=== PATIENT | female | born 1985 | race Hispanic/Latino ===

== ENCOUNTER 2017-08-21 00:53 | Emergency (ER) | payer SELFPAY ==
[2017-08-21 01:09] VITALS: BP 117/79; TEMP 102.8
--- NOTE | 2017-08-21 01:31 | ED.PDOC ---
History of Present Illness - General Chief Complaint: Respiratory Problem Stated Complaint: cough, SOB, sore throat, fever Time Seen by Provider: 08/21/17 01:23 Source: patient Exam Limitations: no limitations - History of Present Illness Timing/Duration: yesterday Cough Quality/Degree: mild Possible Cause: illness exposure Improving Factors: nothing Worsening Factors: eating Associated Symptoms: cough, sore throat Respiratory Risk Factors: exposure to illness Allergies/Adverse Reactions: Allergies NO KNOWN ALLERGY Allergy (Verified 08/21/17 01:09) Home Medications: Ambulatory Orders Amoxicillin & Pot Clavulanate [Augmentin] 875 mg PO BID #14 tab 08/21/17 Review of Systems - Review of Systems Constitutional: States: chills, fever EENTM: States: throat pain. Denies: ear pain, nose congestion Respiratory: States: cough. Denies: wheezing Cardiology: States: no symptoms reported Gastrointestinal/Abdominal: States: no symptoms reported Genitourinary: States: no symptoms reported Musculoskeletal: States: no symptoms reported Skin: States: no symptoms reported Neurological: States: no symptoms reported Endocrine: States: no symptoms reported Hematologic/Lymphatic: States: no symptoms reported All other Systems: Reviewed and Negative Past Medical History (General) - Patient Medical History Hx Seizures: No Hx Stroke: No Hx Dementia: No Hx Asthma: No Hx of COPD: No Hx Cardiac Disorders: Yes Hx Congestive Heart Failure: Yes Hx Pacemaker: No Hx Hypertension: Yes Hx Thyroid Disease: No Hx Diabetes: Yes Hx Gastroesophageal Reflux: No Hx Renal Disease: No Hx Cancer: No Hx of HIV: No Hx Hepatitis C: No Hx MRSA: Yes - Blood, Leg 2010 MRSA Source:: Wound - Vaccination History Hx Tetanus, Diphtheria Vaccination: - unknown Hx Influenza Vaccination: - unknown Hx Pneumococcal Vaccination: - unknown - Social History Hx Tobacco Use: Yes - just quit Hx Chewing Tobacco Use: No Hx Alcohol Use: Yes - just quit Hx Substance Use: Yes - used meth last week Hx Substance Use Treatment: No Hx Depression: Yes Feels Threatened In Home Enviroment: No Feels Threatened In a Relationship: No Hx Physical Abuse: No Hx Emotional Abuse: No Hx Suspected Abuse: No - Female History Patient is a Female of Child Bearing Age (10 -59 yrs old): Yes Family Medical History - Family History Mother Family History: Unknown Living Status: Still Living Physical Exam - Physical Exam General Appearance: Alert, Other - uncomfortable Eye Exam: bilateral normal ENT Exam: normal ENT inspection, hearing grossly normal, TMs normal, pharynx normal Neck: full range of motion, lymphadenopathy (L) Respiratory: chest non-tender, lungs clear, normal breath sounds, no respiratory distress Cardiovascular/Chest: normal peripheral pulses, regular rate, rhythm, no murmur Gastrointestinal/Abdominal: normal bowel sounds, non tender Extremity: non-tender, normal inspection Neurologic: alert, normal mood/affect Skin Exam: normal color, diaphoresis Lymphatic: no adenopathy Progress - Results/Orders Results/Orders: RAPID STREP POS. Departure - Departure Clinical Impression: Strep throat, Systemic inflammatory response syndrome (SIRS) due to infection Disposition: Discharge to Home or Self Care Condition: Good Departure Forms: ED Discharge - Pt. Copy, Patient Portal Self Enrollment Instructions: DI for Strep Throat Diet: resume usual diet Activity: increase activity as tolerated Referrals: Fred Cornejo MD [Active Staff] - 1-2 Weeks Prescriptions: Amoxicillin & Pot Clavulanate [Augmentin] 875 mg PO BID #14 tab Home Medications: Ambulatory Orders Amoxicillin & Pot Clavulanate [Augmentin] 875 mg PO BID #14 tab 08/21/17
[2017-08-21] MEDS ORDERED: AMOXICILLIN & POT CLAVULANATE 875 MG TAB PO ONE (01:34)
[2017-08-21] MEDS ORDERED: ACETAMINOPHEN 500 MG TAB PO ONE (01:37)
[2017-08-21] MEDS ORDERED: ACETAMINOPHEN 500 MG TAB ONE (01:38)
[2017-08-21 01:50] VITALS: O2SAT 96
== END 2017-08-21 01:50 | disposition home or self-care (01) ==
LOC: ER 00:53
DX: J02.0 Streptococcal pharyngitis (principal); I11.0 Hypertensive heart disease with heart failure; I50.9 Heart failure, unspecified; Z86.14 Personal history of Methicillin resistant Staphylococcus aureus infection; Z87.891 Personal history of nicotine dependence

== ENCOUNTER 2017-08-23 07:42 | Inpatient (IN) | payer SELFPAY ==
[2017-08-23] MEDS ORDERED: SODIUM CHLORIDE 0.9% (FLUSH) 10 ML SYG IV PRN ×2 (08:07→13:43)
[2017-08-23] MEDS ORDERED: IPRATROPIUM/ALBUTEROL 3 ML VIAL NEB ONE (08:09)
--- NOTE | 2017-08-23 08:17 | ED.PDOC ---
History of Present Illness - General Chief Complaint: Respiratory Problem Stated Complaint: shortness of breath Time Seen by Provider: 08/23/17 08:07 Source: patient Exam Limitations: no limitations - History of Present Illness Initial Comments: PT PRESENTS TO THE ED WITH COMPLAINT OF SOB SINCE YESTERDAY AND COUGH PRODUCTIVE OF FROTHY SPUTUM THAT BEGAN THIS AM. PT ALSO REPORTS FEVER OF 102.5 YESTERDAY. PT WAS SEEN IN THE ED 2 DAYS PRIOR WHERE SHE WAS DIAGNOSED WITH STREP PHARYNGITIS. PT REPORTS TAKING 2 DOSES OF HER ANTIBIOTIC THUS FAR. PT ALSO REPORTS SHE HAS NOT HAD MEDS FOR DM, HTN, OR CHF FOR THE PAST 2 WEEKS. Timing/Duration: yesterday, getting worse Improving Factors: rest Worsening Factors: movement Associated Symptoms: cough, fever/chills, shortness of breath, sore throat Allergies/Adverse Reactions: Allergies NO KNOWN ALLERGY Allergy (Verified 08/21/17 01:09) Home Medications: Ambulatory Orders Amoxicillin & Pot Clavulanate [Augmentin] 875 mg PO BID #14 tab 08/21/17 Review of Systems - Review of Systems Constitutional: States: chills, fever EENTM: States: throat pain. Denies: double vision, ear pain Respiratory: States: cough, short of breath Cardiology: Denies: chest pain, edema, palpitations Gastrointestinal/Abdominal: Denies: abdominal pain, nausea Genitourinary: Denies: discharge, frequency Musculoskeletal: Denies: back pain, joint pain Skin: Denies: change in color, lesions Neurological: Denies: headache, numbness Endocrine: States: no symptoms reported Hematologic/Lymphatic: States: no symptoms reported Past Medical History (General) - Patient Medical History Hx Seizures: No Hx Stroke: No Hx Dementia: No Hx Asthma: No Hx of COPD: No Hx Cardiac Disorders: Yes Hx Congestive Heart Failure: Yes Hx Pacemaker: No Hx Hypertension: Yes Hx Thyroid Disease: No Hx Diabetes: Yes Hx Gastroesophageal Reflux: No Hx Renal Disease: No Hx Cancer: No Hx of HIV: No Hx Hepatitis C: No Hx MRSA: Yes - Blood, Leg 2010 MRSA Source:: Wound Other Surgeries:: X 4 - Vaccination History Hx Tetanus, Diphtheria Vaccination: - unknown Hx Influenza Vaccination: Yes Hx Pneumococcal Vaccination: - unknown - Social History Hx Tobacco Use: Yes - QUIT 1YEAR AGO Hx Chewing Tobacco Use: No Hx Alcohol Use: Yes - just quit Hx Substance Use: Yes - used meth last week Hx Substance Use Treatment: No Hx Depression: Yes Hx Physical Abuse: No Hx Emotional Abuse: No Hx Suspected Abuse: No - Female History Patient is a Female of Child Bearing Age (10 -59 yrs old): Yes Family Medical History - Family History Mother Family History: Unknown Living Status: Still Living Physical Exam - Physical Exam General Appearance: Alert, Obvious distress - SLIGHTLY TACHYPNEIC, Well Developed, Well Groomed, Well Hydrated Eye Exam: bilateral normal ENT Exam: hearing grossly normal Neck: supple, normal inspection Respiratory: chest non-tender, rales Cardiovascular/Chest: normal peripheral pulses, no murmur, tachycardia Gastrointestinal/Abdominal: non tender, soft Extremity: non-tender, normal inspection, no pedal edema Neurologic: alert, normal mood/affect, oriented x 3 Skin Exam: normal color, warm/dry Progress - Progress Progress: 08/23/17 10:53 PT REPORTS SOME IMPROVEMENT IN DYSPNEA AFTER DUONEB, PT REMAINS TACHYCARDIC AND NOW COMPLAINS OF NAUSEA. ZOFRAN ORDERED. LABS AND CXR FINDINGS DISCUSSED WITH PT WHO AGREES WITH PLAN TO ADMIT. - Results/Orders Results/Orders: 08/23/17 08:07 Telemetry .ONCE Sodium Chloride 0.9% (Flush) [Saline Flush Syringe] 10 ml IV PRN PRN 08/23/17 08:50 BLOOD CULTURE Stat 08/23/17 10:28 URINE CULTURE W/COLONY COUNT Stat Arterial Blood Gas Stat EKG Stat Pulse Ox Stat URINALYSIS Stat 08/23/17 10:29 Pulse Oximetry Assessment DAILY 08/23/17 10:31 cefTRIAXone SODIUM [Rocephin] 1 gm Sodium Chl 0.9% 50Ml Min-Bag+ [NS 50ml MINI -BAG+] 50 ml IVPB ONCE 08/23/17 10:49 LACTIC ACID Stat Laboratory Results - last 24 hr 08/23/17 08/23/17 08:20 08:20 WBC 18.4 H RBC 4.90 Hgb 15.1 Hct 44.1 MCV 90.0 MCH 30.8 MCHC 34.2 RDW 13.5 Plt Count 348 MPV 7.4 Absolute Neuts (auto) 14.60 H Absolute Lymphs (auto) 2.70 Absolute Monos (auto) 0.70 Absolute Eos (auto) 0.30 Absolute Basos (auto) 0.10 Neutrophils % 79.1 H Lymphocytes % 14.9 L Monocytes % 3.7 Eosinophils % 1.5 Basophils % 0.8 PT 12.1 INR 1.070 PTT (SP) 27.4 D-Dimer, Quantitative 365 H* Sodium 137 Potassium 3.4 L Chloride 106 Carbon Dioxide 22 Anion Gap 12.4 BUN 9 Creatinine 0.58 L BUN/Creatinine Ratio 15.5 Random Glucose 208 H Serum Osmolality 278.6 Calcium 8.3 L Magnesium 1.7 L Total Bilirubin 1.1 H Direct Bilirubin 0.1 Indirect Bilirubin 1.0 H AST 16 ALT 16 Alkaline Phosphatase 73 Creatine Kinase 43 CK-MB (CK-2) 2.5 CK-MB (CK-2) % Not Reportable Troponin I 0.02 B-Natriuretic Peptide 598.0 H* Serum Total Protein 7.2 Albumin 3.3 - EKG/XRAY/CT EKG: Sinus, Tachy - 122BPM, NL INTERVALS, NL AXIS, no ST T wave changes - NO OLD EKG FOR COMPARISON XRAY: chest - CHF WITH RLL INFILTRATE PER RAD Departure - Departure Clinical Impression: Congestive heart failure, Pneumonia, Strep throat, Systemic inflammatory response syndrome (SIRS) due to infection, Hypoxemia, Noncompliance with medication regimen Time of Disposition: 10:57 Disposition: Admit Patient Condition: Fair Departure Forms: ED Discharge - Pt. Copy, Patient Portal Self Enrollment Home Medications: Ambulatory Orders Amoxicillin & Pot Clavulanate [Augmentin] 875 mg PO BID #14 tab 08/21/17 Decision To Admit - Decistion To Admit Decision to Admit Reason: Admit from ER Decision to Admit Date: 08/23/17 Decision to Admit Time: 10:57 - CASE DISCUSSED WITH JUANITA HAMPTON NP WHO AGREES TO ADMIT PATIENT
--- NOTE | 2017-08-23 08:21 | RAD ---
EXAM DESCRIPTION: Chest,1 View CLINICAL HISTORY: sob, fever, h/o chf COMPARISON: January 30, 2010 FINDINGS: The cardiac silhouette is enlarged, new from the prior study. Mediastinal contours are otherwise unremarkable. The central bronchovascular markings are indistinct. There is some patchy alveolar opacity in the mid and lower right lung. No pleural effusion. There is no pneumothorax or acute fracture. IMPRESSION: Cardiomegaly, indistinct vascular markings and patchy right-sided alveolar opacities all consistent with provided history of CHF including right-sided edema. Right-sided pneumonia should also be considered. Electronically signed by: Michael Mccoy MD 08/23/2017 8:20 AM CDT
[2017-08-23] MEDS ORDERED: FUROSEMIDE INJ 40 MG/4 ML VIAL IV ONE (08:35)
[2017-08-23] MEDS ORDERED: cefTRIAXone SODIUM 1 GM in SODIUM CHL 0.9% 50ML MIN-BAG+ 50 ML IVPB ONE ×2 (08:36→10:31)
[2017-08-23] MEDS ORDERED: AZITHROMYCIN IV 500 MG in SODIUM CHLORIDE 0.9% 250ML 250 ML IVPB ONE (08:36)
[2017-08-23] MEDS ORDERED: cefTRIAXone SODIUM 1 GM VIAL ONE ×2 (08:51→11:22)
[2017-08-23] MEDS ORDERED: SODIUM CHL 0.9% 50ML MIN-BAG+ 50 ML IVPB ONE ×2 (08:52→11:22)
[2017-08-23] MEDS ORDERED: SODIUM CHLORIDE 0.9% 250ML 250 ML ONE (09:37)
[2017-08-23] MEDS ORDERED: AZITHROMYCIN IV 500 MG VIAL IVPB ONE (09:37)
[2017-08-23] MEDS ORDERED: ONDANSETRON INJ 4 MG/2 ML VIAL IV ONE (10:26)
[2017-08-23] MEDS ORDERED: ACETAMINOPHEN 500 MG TAB PO ONE (10:28)
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
[2017-08-23] MEDS ORDERED: POTASSIUM CHLORIDE 20 MEQ TAB PO ONE (13:36)
[2017-08-23] MEDS ORDERED: MAGNESIUM SULFATE PREMIX 2GM 2 GM in PREMIX BAG 1 BAG IVPB ONE (13:36)
[2017-08-23] MEDS ORDERED: NITROGLYCERIN 0.4 MG 25 EA TAB SL PRN (13:38)
[2017-08-23] MEDS ORDERED: ALBUTEROL SULFATE 2.5 MG/3 ML VIAL NEB PRN (13:38)
[2017-08-23] MEDS ORDERED: MAGNESIUM SULFATE PREMIX 2GM 50 ML IVPB ONE (13:41)
[2017-08-23] MEDS ORDERED: SPIRONOLACTONE 25 MG TAB PO ONE (13:42)
[2017-08-23] MEDS ORDERED: ACETAMINOPHEN 325 MG TAB PO PRN (13:43)
[2017-08-23] MEDS ORDERED: GLUCAGON INJ 1 MG VIAL SUBCU PRN (13:48)
[2017-08-23] MEDS ORDERED: DEXTROSE 50% 25 GM/50 ML SYG IV PRN (13:48)
[2017-08-23] MEDS ORDERED: IV SET AND CAP CHANGE INJ INJ SCH (14:00)
[2017-08-23] MEDS ORDERED: METOPROLOL SUCCINATE XL 25 MG TAB PO SCH (14:00)
[2017-08-23] MEDS: IV SET AND CAP CHANGE INJ INJ SCH (14:23)
--- NOTE | 2017-08-23 14:41 | CT ---
EXAM DESCRIPTION: CTA Chest CLINICAL HISTORY: possible PE . Shortness of breath. Fever. COMPARISON: Chest radiograph earlier same day. TECHNIQUE: Multiple angiographic phase axial images of the chest following intravenous contrast. Multiplanar reconstructions were provided. MIPS were generated as well. This exam was performed according to our departmental dose-optimization program, which includes automated exposure control, adjustment of the mA and/or kV according to patient size and/or use of iterative reconstruction technique. FINDINGS: Lungs: Somewhat nodular airspace opacities with reticulonodular interstitial thickening throughout the right lung, most pronounced in the right lower lobe. More hazy groundglass consolidation in the left lower lobe. Small right greater than left pleural effusions. Mediastinum: The heart is enlarged. There are no filling defects in the pulmonary arteries through the segmental branches. Small pericardial effusion. The trachea and esophagus are unremarkable. Lymph nodes: There are no pathologically enlarged lymph nodes by CT size criteria. Chest wall and lower neck: No significant finding. Bones: There is no destructive osseous lesion Upper abdomen: The liver is enlarged. IMPRESSION: 1. No CTA evidence of pulmonary embolism. 2. Extensive nodular consolidation throughout the right lung, with more patchy groundglass consolidation in the left lung. The findings may be secondary to multifocal pneumonia versus asymmetric pulmonary edema. Correlate clinically. 3. Cardiomegaly with bilateral pleural effusions and pericardial effusion. 4. Hepatomegaly. 5. Other findings as above. Electronically signed by: Jairo Elizabeth MD 08/23/2017 2:40 PM CDT
[2017-08-23] MEDS: CARVEDILOL 3.125 MG TAB PO SCH ×2 (15:16→21:02)
[2017-08-23] MEDS ORDERED: FUROSEMIDE INJ 20 MG/2 ML VIAL ONE (15:37)
[2017-08-23] MEDS ORDERED: LORazepam 0.5 MG TAB PO ONE (15:53)
[2017-08-23] MEDS ORDERED: LORazepam 0.5 MG TAB ONE (15:56)
[2017-08-23] MEDS: INSULIN LISPRO 100 UNITS/ML PEN SUBCU SCH ×2 (16:51→21:07)
[2017-08-23] MEDS: FUROSEMIDE INJ 20 MG/2 ML VIAL IV SCH (16:52)
[2017-08-23] MEDS: IPRATROPIUM/ALBUTEROL 3 ML VIAL INH SCH ×2 (17:40→19:30)
[2017-08-23] MEDS ORDERED: INSULIN LISPRO 100 UNITS/ML PEN SUBCU SCH (18:00)
[2017-08-23] MEDS ORDERED: PANTOPRAZOLE INJECTION 40 MG in SODIUM CHLORIDE 0.9% 100ML 100 ML IVPB ONE (19:57)
[2017-08-23] MEDS ORDERED: ONDANSETRON INJ 4 MG/2 ML VIAL IV PRN (19:57)
[2017-08-23] MEDS ORDERED: ACYCLOVIR 5% OINTMENT TOP ONE (20:30)
[2017-08-23] MEDS ORDERED: PANTOPRAZOLE SODIUM IV 40 MG VIAL ONE (20:46)
[2017-08-23] MEDS ORDERED: SODIUM CHLORIDE 0.9% 100ML 100 ML IVPB ONE (20:55)
[2017-08-23] MEDS: MICONAZOLE NITRATE 2 % 45 GM TUBE VAG SCH (21:02)
[2017-08-23] MEDS: ACYCLOVIR 5% OINTMENT TOP SCH ×2 (21:59→23:28)
--- NOTE | 2017-08-23 22:27 | PCM.CORE ---
Physician DVT/VTE - Nurse DVT Assessment & Total Each Risk Factor Represents 3 Points: Medical PT with Hx of [place], CHF, Severe infection/sepsis Each Risk Factor is 1 Point: Obesity (BMI >25) DVT Assessment Score: 4 - 3-4 High Risk Treatments: Early Ambulation *, Sequential Compression Device Pharmacological: Enoxaparin 40 mg SQ Daily
[2017-08-23] MEDS ORDERED: ENOXAPARIN SODIUM 40 MG/0.4 ML SYG SUBCU SCH (22:30)
[2017-08-24] MEDS: ACYCLOVIR 5% OINTMENT TOP SCH ×8 (02:06→22:41)
--- NOTE | 2017-08-24 06:23 | RAD ---
Procedure: XR CHEST 2 VIEWS Exam Date: 08/24/2017 Ordering Provider: Zeus Mar NP Clinical Indication: Pneumonia Comparison: 08/23/2017 Findings: Cardiomediastinal silhouette is stable. Focal lung consolidation: Diffuse bilateral lung opacities, right greater than left, are slightly improved from prior. Pleural effusion: None Pneumothorax: None Acute bony or soft tissue abnormality: None Impression: 1. Diffuse bilateral lung opacities, right greater than left, are slightly improved from prior. Electronically signed by: Gael West MD 08/24/2017 6:22 AM CDT
[2017-08-24] MEDS ORDERED: ASPIRIN (CHEWABLE) 81 MG TAB ONE (07:32)
[2017-08-24] MEDS ORDERED: SODIUM CHLORIDE 0.9% 250ML 250 ML ONE (07:33)
[2017-08-24] MEDS ORDERED: LISINOPRIL 10 MG TAB ONE (07:33)
[2017-08-24] MEDS ORDERED: SODIUM CHL 0.9% 50ML MIN-BAG+ 50 ML IVPB ONE (07:33)
[2017-08-24] MEDS: IPRATROPIUM/ALBUTEROL 3 ML VIAL INH SCH ×4 (07:34→19:35)
[2017-08-24] MEDS ORDERED: cefTRIAXone SODIUM 1 GM VIAL ONE (07:34)
[2017-08-24] MEDS ORDERED: LISINOPRIL 5 MG TAB ONE (07:34)
[2017-08-24] MEDS ORDERED: glipiZIDE 5 MG TAB ONE (07:34)
[2017-08-24] MEDS ORDERED: AZITHROMYCIN IV 500 MG VIAL IVPB ONE (07:34)
[2017-08-24] MEDS: INSULIN LISPRO 100 UNITS/ML PEN SUBCU SCH ×4 (07:43→21:17)
[2017-08-24] MEDS: AZITHROMYCIN IV 500 MG in SODIUM CHLORIDE 0.9% 250ML 250 ML IVPB SCH (07:44)
[2017-08-24] MEDS: POTASSIUM CHLORIDE 20 MEQ TAB PO SCH (07:44)
[2017-08-24] MEDS: glipiZIDE 5 MG TAB PO SCH (08:41)
[2017-08-24] MEDS: CARVEDILOL 3.125 MG TAB PO SCH ×2 (08:41→20:47)
[2017-08-24] MEDS: FUROSEMIDE INJ 20 MG/2 ML VIAL IV SCH ×2 (08:41→17:28)
[2017-08-24] MEDS: ASPIRIN (CHEWABLE) 81 MG TAB PO SCH (08:41)
[2017-08-24] MEDS: LISINOPRIL 5 MG TAB PO SCH (08:41)
[2017-08-24] MEDS: LISINOPRIL 10 MG TAB PO SCH (08:41)
[2017-08-24] MEDS ORDERED: cefTRIAXone SODIUM 1 GM in SODIUM CHL 0.9% 50ML MIN-BAG+ 50 ML IVPB SCH (10:00)
[2017-08-24] MEDS ORDERED: SODIUM CHLORIDE 0.9% 500ML 500 ML IVS ONE (10:13)
[2017-08-24] MEDS ORDERED: METOCLOPRAMIDE HCL INJ 10 MG/2 ML VIAL IV ONE (10:18)
[2017-08-24] MEDS: METOCLOPRAMIDE HCL INJ 10 MG/2 ML VIAL IV SCH ×3 (10:43→22:42)
[2017-08-24] MEDS ORDERED: cefTRIAXone SODIUM 1 GM in SODIUM CHL 0.9% 50ML MIN-BAG+ 50 ML IVPB ONE (11:48)
[2017-08-24] MEDS ORDERED: SODIUM CHLORIDE 3% INH ONE (13:00)
[2017-08-24] MEDS ORDERED: metroNIDAZOLE IV PREMIX 500MG 100 ML IVPB ONE ×2 (13:36→19:39)
[2017-08-24] MEDS: metroNIDAZOLE IV PREMIX 500MG 500 MG in PREMIX BAG 1 BAG IVPB SCH ×3 (14:51→22:53)
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
[2017-08-24] MEDS ORDERED: TUBERCULIN 5TU 5 TU/0.1 ML VIAL ID ONE (17:21)
[2017-08-24] MEDS: BIFIDOBACTERIUM INFANTIS 4 MG CAP PO SCH (17:28)
[2017-08-24] MEDS ORDERED: ENOXAPARIN SODIUM 40 MG/0.4 ML SYG SUBCU ONE (19:39)
[2017-08-24] MEDS ORDERED: CARVEDILOL 3.125 MG TAB ONE (19:39)
[2017-08-24] MEDS: MICONAZOLE NITRATE 2 % 45 GM TUBE VAG SCH (20:42)
[2017-08-24] MEDS: ENOXAPARIN SODIUM 40 MG/0.4 ML SYG SUBCU SCH (20:47)
[2017-08-25] MEDS: ACYCLOVIR 5% OINTMENT TOP SCH ×8 (02:15→22:48)
[2017-08-25] MEDS ORDERED: metroNIDAZOLE IV PREMIX 500MG 100 ML IVPB ONE ×3 (03:28→19:39)
[2017-08-25] MEDS: METOCLOPRAMIDE HCL INJ 10 MG/2 ML VIAL IV SCH ×4 (04:57→21:39)
[2017-08-25] MEDS: metroNIDAZOLE IV PREMIX 500MG 500 MG in PREMIX BAG 1 BAG IVPB SCH ×3 (05:06→21:38)
[2017-08-25] MEDS: glipiZIDE 5 MG TAB PO SCH (06:05)
--- NOTE | 2017-08-25 06:41 | RAD ---
Procedure: XR CHEST 2 VIEWS Exam Date: 08/25/2017 Ordering Provider: Zeus Mar NP Clinical Indication: pneumonia Comparison: 08/24/2017 Findings: Cardiomediastinal silhouette is stable. Focal lung consolidation: Diffuse bilateral lung opacities, right greater than left, continue to improve compared to prior. Pleural effusion: None Pneumothorax: None Acute bony or soft tissue abnormality: None Impression: 1. Diffuse bilateral lung opacities, right greater than left, continue to improve compared to prior. Electronically signed by: Gael West MD 08/25/2017 6:40 AM CDT
[2017-08-25] MEDS: INSULIN LISPRO 100 UNITS/ML PEN SUBCU SCH ×4 (07:09→21:39)
[2017-08-25] MEDS ORDERED: SODIUM CHLORIDE 0.9% 250ML 250 ML ONE (07:17)
[2017-08-25] MEDS ORDERED: AZITHROMYCIN IV 500 MG VIAL IVPB ONE (07:18)
[2017-08-25] MEDS: POTASSIUM CHLORIDE 20 MEQ TAB PO SCH (07:42)
[2017-08-25] MEDS: BIFIDOBACTERIUM INFANTIS 4 MG CAP PO SCH (08:00)
[2017-08-25] MEDS: LISINOPRIL 10 MG TAB PO SCH (08:01)
[2017-08-25] MEDS: ASPIRIN (CHEWABLE) 81 MG TAB PO SCH (08:01)
[2017-08-25] MEDS: LISINOPRIL 5 MG TAB PO SCH (08:01)
[2017-08-25] MEDS: CARVEDILOL 3.125 MG TAB PO SCH ×2 (08:02→20:34)
[2017-08-25] MEDS: FUROSEMIDE INJ 20 MG/2 ML VIAL IV SCH ×2 (08:02→17:05)
[2017-08-25] MEDS: AZITHROMYCIN IV 500 MG in SODIUM CHLORIDE 0.9% 250ML 250 ML IVPB SCH (08:03)
[2017-08-25] MEDS ORDERED: SODIUM CHL 0.9% 100ML MINI-BAG 100 ML IVPB ONE (09:01)
[2017-08-25] MEDS: IPRATROPIUM/ALBUTEROL 3 ML VIAL INH SCH ×4 (09:06→19:56)
[2017-08-25] MEDS: cefTRIAXone SODIUM 2 GM in SODIUM CHL 0.9% 100ML MINI-BAG 100 ML IVPB SCH (10:22)
[2017-08-25] MEDS: MICONAZOLE NITRATE 2 % 45 GM TUBE VAG SCH (20:34)
[2017-08-25] MEDS: ENOXAPARIN SODIUM 40 MG/0.4 ML SYG SUBCU SCH (20:34)
[2017-08-25] MEDS: SODIUM CHLORIDE 0.9% (FLUSH) 10 ML SYG IV PRN (21:39)
[2017-08-26] MEDS: ACYCLOVIR 5% OINTMENT TOP SCH ×8 (02:20→23:44)
[2017-08-26] MEDS: METOCLOPRAMIDE HCL INJ 10 MG/2 ML VIAL IV SCH ×4 (04:02→22:10)
[2017-08-26] MEDS: SODIUM CHLORIDE 0.9% (FLUSH) 10 ML SYG IV PRN ×4 (04:02→20:03)
[2017-08-26] MEDS ORDERED: metroNIDAZOLE IV PREMIX 500MG 100 ML IVPB ONE ×3 (06:16→19:33)
[2017-08-26] MEDS: metroNIDAZOLE IV PREMIX 500MG 500 MG in PREMIX BAG 1 BAG IVPB SCH ×3 (06:21→22:10)
[2017-08-26] MEDS: glipiZIDE 5 MG TAB PO SCH (06:21)
--- NOTE | 2017-08-26 07:10 | RAD ---
EXAM DESCRIPTION: Chest,2 Views CLINICAL HISTORY: pneumonia COMPARISON: August 25, 2017 FINDINGS: The heart is slightly enlarged but stable. Again seen is patchy alveolar opacity in the mid and lower right lung, unchanged from yesterday's exam. A subtle nodular opacity is noted in the right lung base. No new airspace consolidation. No definite pleural effusion. There is no pneumothorax or acute fracture. IMPRESSION: Patchy right-sided airspace consolidation, unchanged from yesterday's exam. Differential considerations include pneumonia or edema. Follow-up chest radiograph to document complete resolution and exclude the possibility of an underlying lung nodule is recommended. No new abnormality or other significant interval change. Electronically signed by: Michael Mccoy MD 08/26/2017 7:09 AM CDT
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
[2017-08-26] MEDS: FUROSEMIDE INJ 20 MG/2 ML VIAL IV SCH ×2 (08:51→17:26)
[2017-08-26] MEDS: BIFIDOBACTERIUM INFANTIS 4 MG CAP PO SCH (08:51)
[2017-08-26] MEDS: POTASSIUM CHLORIDE 20 MEQ TAB PO SCH (08:51)
[2017-08-26] MEDS: LISINOPRIL 10 MG TAB PO SCH (08:51)
[2017-08-26] MEDS: AZITHROMYCIN 250 MG TAB PO SCH (08:52)
[2017-08-26] MEDS: IPRATROPIUM/ALBUTEROL 3 ML VIAL INH SCH ×3 (08:54→20:12)
[2017-08-26] MEDS: INSULIN LISPRO 100 UNITS/ML PEN SUBCU SCH ×4 (09:44→21:22)
[2017-08-26] MEDS ORDERED: SODIUM CHL 0.9% 100ML MINI-BAG 100 ML IVPB ONE (09:45)
[2017-08-26] MEDS: cefTRIAXone SODIUM 2 GM in SODIUM CHL 0.9% 100ML MINI-BAG 100 ML IVPB SCH (09:53)
[2017-08-26] MEDS: ASPIRIN (CHEWABLE) 81 MG TAB PO SCH (09:59)
[2017-08-26] MEDS: CARVEDILOL 3.125 MG TAB PO SCH ×2 (10:05→20:02)
[2017-08-26] MEDS: LISINOPRIL 5 MG TAB PO SCH (10:05)
[2017-08-26] MEDS ORDERED: POTASSIUM CHLORIDE 20 MEQ TAB PO ONE (12:21)
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
[2017-08-26] MEDS: IV SET AND CAP CHANGE INJ INJ SCH (14:04)
[2017-08-26] MEDS: ENOXAPARIN SODIUM 40 MG/0.4 ML SYG SUBCU SCH (20:02)
[2017-08-26] MEDS: MICONAZOLE NITRATE 2 % 45 GM TUBE VAG SCH (20:03)
[2017-08-27] MEDS: ACYCLOVIR 5% OINTMENT TOP SCH ×3 (02:01→09:34)
[2017-08-27] MEDS ORDERED: metroNIDAZOLE IV PREMIX 500MG 100 ML IVPB ONE (04:09)
[2017-08-27] MEDS: METOCLOPRAMIDE HCL INJ 10 MG/2 ML VIAL IV SCH (04:14)
[2017-08-27] MEDS: SODIUM CHLORIDE 0.9% (FLUSH) 10 ML SYG IV PRN (04:14)
[2017-08-27] MEDS: metroNIDAZOLE IV PREMIX 500MG 500 MG in PREMIX BAG 1 BAG IVPB SCH (05:58)
[2017-08-27 06:32] VITALS: TEMP 98.4
[2017-08-27] MEDS: glipiZIDE 5 MG TAB PO SCH (07:06)
--- NOTE | 2017-08-27 07:11 | RAD ---
EXAM DESCRIPTION: Chest,2 Views CLINICAL HISTORY: pna COMPARISON: August 26, 2017 FINDINGS: The heart is enlarged but stable from the prior study. There has been interval improvement in appearance of the right lung base with only mild interstitial prominence noted in the right lung base on today's exam. No new airspace consolidation or pleural effusion. The appearance of the bronchovascular markings is also improved from yesterday's exam. There is no pneumothorax or acute fracture. IMPRESSION: Stable cardiomegaly with interval improvement in appearance of the right lung base and bronchovascular markings. No new abnormality. Electronically signed by: Michael Mccoy MD 08/27/2017 7:10 AM CDT
[2017-08-27] MEDS: INSULIN LISPRO 100 UNITS/ML PEN SUBCU SCH ×2 (07:33→12:19)
[2017-08-27] MEDS: POTASSIUM CHLORIDE 20 MEQ TAB PO SCH (07:36)
[2017-08-27] MEDS: IPRATROPIUM/ALBUTEROL 3 ML VIAL INH SCH ×2 (08:24→14:08)
[2017-08-27] MEDS: AZITHROMYCIN 250 MG TAB PO SCH (09:29)
[2017-08-27] MEDS: ASPIRIN (CHEWABLE) 81 MG TAB PO SCH (09:29)
[2017-08-27] MEDS: FUROSEMIDE INJ 20 MG/2 ML VIAL IV SCH (09:29)
[2017-08-27] MEDS: LISINOPRIL 5 MG TAB PO SCH (09:29)
[2017-08-27] MEDS: BIFIDOBACTERIUM INFANTIS 4 MG CAP PO SCH (09:29)
[2017-08-27] MEDS: CARVEDILOL 3.125 MG TAB PO SCH (09:29)
[2017-08-27] MEDS: LISINOPRIL 10 MG TAB PO SCH (09:29)
[2017-08-27 14:52] VITALS: BP 125/74; O2SAT 93
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
== END 2017-08-27 14:45 | disposition home or self-care (01) | DRG 291 ==
LOC: ER 07:42 → MS 12:19 → UNDOADMIN 12:19
PROVIDERS: ADMIT Nurse Practitioner Family; ATTEND Nurse Practitioner Acute Care
PROC: B32TYZZ Computerized Tomography (CT Scan) of Left Pulmonary Artery using Other Contrast (ICD-10-PCS; principal; 2017-08-23)
PROC: B32SYZZ Computerized Tomography (CT Scan) of Right Pulmonary Artery using Other Contrast (ICD-10-PCS; 2017-08-23)
DX: I11.0 Hypertensive heart disease with heart failure (principal); J18.9 Pneumonia, unspecified organism; N39.0 Urinary tract infection, site not specified; R09.02 Hypoxemia; J02.0 Streptococcal pharyngitis; I50.9 Heart failure, unspecified; E11.9 Type 2 diabetes mellitus without complications; F17.210 Nicotine dependence, cigarettes, uncomplicated; F10.21 Alcohol dependence, in remission; Z91.14 Patient's other noncompliance with medication regimen; B37.3 Candidiasis of vulva and vagina; Z79.899 Other long term (current) drug therapy

== ENCOUNTER 2017-11-14 20:00 | Emergency (ER) | payer SELFPAY ==
--- NOTE | 2017-11-14 20:19 | ED.PDOC ---
History of Present Illness - General Chief Complaint: Chest Pain/ID Stated Complaint: chest tightness Time Seen by Provider: 11/14/17 20:19 Source: patient Exam Limitations: no limitations - History of Present Illness Initial Comments: Ping Whitley 32 y/o female brought by POV to ER with worsening SOB since early this am about 0130h today-20 hours ago and tonight chest feels tight mostly right side no diaphoresis,no nausea vomiting.Had been diagnosed with chf and enlarged heart in one of Hospital in [place] 6 months ago.Has history of diabetes on insulin but not been compliant since she is still waiting for her medicaid card. Timing/Duration: changing over time, other - see hpi Severity: moderate Location: other - right side of chest see hpi Activities at Onset: rest Prior Chest Pain/Cardiac Workup: echocardiography Improving Factors: nothing Worsening Factors: nothing Nitro Today/Relief: no nitro taken today Aspirin Treatment Today: provided by ED Associated Symptoms: shortness of breath Allergies/Adverse Reactions: Allergies NO KNOWN ALLERGY Allergy (Verified 08/21/17 01:09) Home Medications: Ambulatory Orders Ciprofloxacin [Cipro] 250 mg PO DAILY 08/23/17 Potassium Chloride Microencaps [Klor-Con M20] 20 meq PO DAILY 08/23/17 Bifidobacterium Infantis [Align] 4 mg PO BID #60 cap 08/27/17 Carvedilol [Coreg] 3.125 mg PO BID #60 tab 08/27/17 Fluconazole 100 mg PO DAILY #2 tab 08/27/17 Furosemide 40 mg PO DAILY #30 tab 08/27/17 Glipizide 5 mg PO DAILY #30 tab 08/27/17 Lisinopril [Prinivil] 10 mg PO DAILY #30 tab 08/27/17 Potassium Chloride Tab [K-Dur] 20 meq PO DAILY #30 tab 08/27/17 metroNIDAZOLE [Flagyl] 500 mg PO TID #6 tab 08/27/17 Furosemide 20 mg PO BID #30 tab 11/14/17 Lisinopril 10 mg PO DAILY #30 tab 11/14/17 Potassium Chloride Tab [K-Dur] 20 meq PO DAILY #30 tab 11/14/17 Review of Systems - Review of Systems Constitutional: States: no symptoms reported EENTM: States: no symptoms reported Respiratory: States: see HPI Cardiology: States: see HPI Gastrointestinal/Abdominal: States: no symptoms reported Genitourinary: States: no symptoms reported All other Systems: Reviewed and Negative, No Change from Baseline Past Medical History (General) - Patient Medical History Hx Seizures: No Hx Stroke: No Hx Dementia: No Hx Asthma: No Hx of COPD: No Hx Cardiac Disorders: Yes Hx Congestive Heart Failure: Yes Hx Pacemaker: No Hx Hypertension: Yes Hx Thyroid Disease: No Hx Diabetes: Yes Hx Gastroesophageal Reflux: No Hx Renal Disease: No Hx Cancer: No Hx of HIV: No Hx Hepatitis C: No Hx MRSA: Yes Hx Other PMH: Yes - history of substance use but been sober for 6 months MRSA Source:: Wound Surgical History: other - - Vaccination History Hx Tetanus, Diphtheria Vaccination: - unknown Hx Influenza Vaccination: Yes Hx Pneumococcal Vaccination: - unknown - Social History Hx Tobacco Use: Yes - QUIT 1YEAR AGO Hx Chewing Tobacco Use: No Hx Alcohol Use: No Hx Substance Use: No Hx Substance Use Treatment: No Hx Depression: Yes Hx Physical Abuse: No Hx Emotional Abuse: No Hx Suspected Abuse: No Family Medical History - Family History Mother Family History: Unknown Living Status: Still Living Physical Exam - Physical Exam General Appearance: Alert, Comfortable, No apparent distress Eyes, Ears, Nose, Throat Exam: normal ENT inspection, TMs normal, pharynx normal Neck: non-tender, supple Respiratory: chest non-tender, lungs clear, normal breath sounds Cardiovascular/Chest: normal peripheral pulses, no gallop, no murmur, tachycardia - heart rate 102 Peripheral Pulses: radial,right: 2+, radial,left: 2+ Gastrointestinal/Abdominal: normal bowel sounds, non tender, soft, no organomegaly Extremity: normal range of motion, non-tender, no pedal edema, no calf tenderness Neurologic: no motor/sensory deficits, alert, oriented x 3 Skin Exam: normal color, warm/dry Progress - Progress Progress: 11/14/17 21:27 Last Vital Signs Temp 98 F 11/14/17 20:25 Pulse 92 H 11/14/17 20:25 Resp 20 11/14/17 20:25 BP 135/83 11/14/17 20:25 Pulse Ox 98 11/14/17 20:25 - EKG/XRAY/CT XRAY: chest - cardiomegaly CT Ordered: Yes - chest -no pulmonary embolus Departure - Departure Clinical Impression: Chest tightness or pressure, Elevated d-dimer, Hypertrophic cardiomegaly Time of Disposition: 23:54 Disposition: Discharge to Home or Self Care Departure Forms: ED Discharge - Pt. Copy, Patient Portal Self Enrollment Instructions: DI for Heart Failure, Heart Failure, Congestive Heart Failure ( Alternative Therapy) Prescriptions: Furosemide 20 mg PO BID #30 tab Lisinopril 10 mg PO DAILY #30 tab Potassium Chloride Tab [K-Dur] 20 meq PO DAILY #30 tab Home Medications: Ambulatory Orders Ciprofloxacin [Cipro] 250 mg PO DAILY 08/23/17 Potassium Chloride Microencaps [Klor-Con M20] 20 meq PO DAILY 08/23/17 Bifidobacterium Infantis [Align] 4 mg PO BID #60 cap 08/27/17 Carvedilol [Coreg] 3.125 mg PO BID #60 tab 08/27/17 Fluconazole 100 mg PO DAILY #2 tab 08/27/17 Furosemide 40 mg PO DAILY #30 tab 08/27/17 Glipizide 5 mg PO DAILY #30 tab 08/27/17 Lisinopril [Prinivil] 10 mg PO DAILY #30 tab 08/27/17 Potassium Chloride Tab [K-Dur] 20 meq PO DAILY #30 tab 08/27/17 metroNIDAZOLE [Flagyl] 500 mg PO TID #6 tab 08/27/17 Furosemide 20 mg PO BID #30 tab 11/14/17 Lisinopril 10 mg PO DAILY #30 tab 11/14/17 Potassium Chloride Tab [K-Dur] 20 meq PO DAILY #30 tab 11/14/17 Additional Instructions: NEED TO MAKE APPOINTMENT WITH PRIMARY MD [facility] 11/15/2017 patient to call [phone];Continue with rest of home medications
[2017-11-14 20:26] VITALS: O2SAT 98
--- NOTE | 2017-11-14 20:48 | RAD ---
EXAM DESCRIPTION: Chest,1 View CLINICAL HISTORY: chest pain, dyspnea COMPARISON: 08/27/2017 FINDINGS: There is marked cardiomegaly, significantly worse than on the prior exam. No significant pulmonary vascular engorgement.. There is no focal parenchymal or pleural disease. Visualized osseous structures are within normal limits. IMPRESSION: Massive cardiomegaly. Electronically signed by: Matty Moncada 11/14/2017 8:46 PM CRUSHING FOREMAN
[2017-11-14] MEDS ORDERED: SODIUM CHLORIDE 0.9% 1000ML 1,000 ML IVS ONE (21:02)
[2017-11-14] MEDS ORDERED: BUMETANIDE 0.25 MG/ML VIAL IV ONE (21:14)
[2017-11-14] MEDS ORDERED: NITROGLYCERIN 0.4 MG 25 EA TAB SL ONE (21:16)
[2017-11-14] MEDS ORDERED: LISINOPRIL 10 MG TAB PO ONE (21:18)
[2017-11-14] MEDS: NITROGLYCERIN 0.4 MG/HR PATCH TOP ONE ×2 (21:24→22:56)
[2017-11-14] MEDS ORDERED: MAGNESIUM SULFATE INJ 1 GM in SODIUM CHLORIDE 0.9% 100ML 100 ML IVPB ONE (21:54)
--- NOTE | 2017-11-14 22:46 | CT ---
PROCEDURE: CTA Chest CLINICAL HISTORY: 32 years Female chest tightness elevated d-dimer COMPARISON: None. TECHNIQUE: Contiguous axial images were obtained through the chest during the infusion of IV contrast. Reformatted images obtained. MIP reformatted images obtained. This exam was performed according to our department optimization program which includes automated exposure control, adjustment of the mA and/or kv according to patient size and/or use of iterative reconstruction technique. FINDINGS: There is marked cardiomegaly. Small amount of perihepatic and perisplenic fluid is present. There is soft tissue stranding of the mesenteric fat. There is pericholecystic fluid. No calcified gallstones. Mild gallbladder wall thickening is seen. There is a 5 mm nodule in the posterior right lung. 6 mm nodule is at the posterior left lung base. There is a pericardial effusion. Mildly enlarged mediastinal lymph nodes are present. The lungs are otherwise clear. No pneumothorax is seen. No PE is seen. No evidence of aortic aneurysm. No other significant abnormality. IMPRESSION: No evidence of pulmonary embolus. Cardiomegaly. Pericardial effusions. Perihepatic and perisplenic fluid. Pulmonary nodules. See additional findings above. Electronically signed by: Matty Moncada 11/14/2017 10:45 PM ELECTRIC WIRER
[2017-11-14] MEDS ORDERED: MAGNESIUM SULFATE INJ 1 GM/2 ML VIAL ONE (22:48)
[2017-11-14] MEDS ORDERED: SODIUM CHLORIDE 0.9% 100ML 100 ML IVPB ONE (22:49)
[2017-11-15 01:23] VITALS: BP 121/82; TEMP 96.4
== END 2017-11-15 01:15 | disposition home or self-care (01) ==
LOC: ER 20:00
DX: R79.89 Other specified abnormal findings of blood chemistry (principal); R07.89 Other chest pain; I11.0 Hypertensive heart disease with heart failure; I50.9 Heart failure, unspecified; E11.9 Type 2 diabetes mellitus without complications; Z87.891 Personal history of nicotine dependence
CPT/HCPCS: 36415; 71010; 71275; 80048; 80076; 80307; 81001; 81025; 82550; 82553; 83880; 84484; 85025; 85379; 85610; 85730; 93005; J3475; J3490; J7050

== ENCOUNTER 2017-12-09 17:21 | Emergency (ER) | payer SELFPAY ==
[2017-12-09 17:34] VITALS: TEMP 97.9
--- NOTE | 2017-12-09 18:06 | ED.PDOC ---
History of Present Illness - General Chief Complaint: Abdominal Pain Stated Complaint: abdominal pain Time Seen by Provider: 12/09/17 18:06 Information Source: patient Exam Limitations: no limitations - History of Present Illness Initial Comments: Ping Whitley 32 y/o female stated that she had been having dull abdominal pain since but for the last 5 days getting more frequent and lasting longer pain getting worse.Has history of cardiomyopathy ,dm2 ,but not taking medications regularly since she is still waiting for her Medicaid approval.No nausea/vomiting able to eat,no hematemesis,no hematuria/dysuria,no blood in stools,no constipation. Ran out of lasix the last 3 days. Abdominal Pain Onset Location: generalized abdomen Pain Radiation: no radiation Quality: moderate, dull, intermittent Timing/Duration: other - 60 days Improving Factors: nothing Worsening Factors: nothing Associated Symptoms: other - see hpi Review of Systems - Review of Systems Constitutional: States: no symptoms reported EENTM: States: no symptoms reported Respiratory: States: no symptoms reported Cardiology: States: other - hx of cardiomyopathy Gastrointestinal/Abdominal: States: see HPI Genitourinary: States: no symptoms reported All other Systems: Reviewed and Negative, No Change from Baseline Past Medical History (General) - Patient Medical History Hx Seizures: No Hx Stroke: No Hx Dementia: No Hx Asthma: No Hx of COPD: No Hx Cardiac Disorders: Yes - cardiomyopathy Hx Congestive Heart Failure: Yes Hx Pacemaker: No Hx Hypertension: Yes Hx Thyroid Disease: No Hx Diabetes: Yes Hx Gastroesophageal Reflux: No Hx Renal Disease: No Hx Cancer: No Hx of HIV: No Hx Hepatitis C: No Hx MRSA: Yes MRSA Source:: Wound Surgical History: other - ;BTL - Vaccination History Hx Tetanus, Diphtheria Vaccination: - unknown Hx Influenza Vaccination: Yes Hx Pneumococcal Vaccination: - unknown - Social History Hx Tobacco Use: Yes - QUIT 1YEAR AGO Hx Chewing Tobacco Use: No Hx Alcohol Use: No Hx Substance Use: No Hx Substance Use Treatment: No Hx Depression: Yes Hx Physical Abuse: No Hx Emotional Abuse: No Hx Suspected Abuse: No - Activities of Daily Living Patient Lives Alone: No - Female History Patient is a Female of Child Bearing Age (10 -59 yrs old): Yes Hx Last Menstrual Period: 11/24/17 Patient : No Family Medical History - Family History Mother Family History: Unknown Living Status: Still Living Physical Exam - Physical Exam General Appearance: Alert, Comfortable, No apparent distress Eyes, Ears, Nose, Throat Exam: PERRL/EOMI, normal ENT inspection, pharynx normal Neck: non-tender, supple Respiratory: lungs clear, normal breath sounds Cardiovascular/Chest: normal peripheral pulses, regular rate, rhythm, systolic murmur - grade 3/6 systolic murmur apex Peripheral Pulses: No deficit Gastrointestinal/Abdominal: normal bowel sounds, soft, no organomegaly, tenderness - tenderness mid abdomen to epigastrium no peritoneal signs Back Exam: no CVA tenderness, no vertebral tenderness Extremity: no pedal edema, no calf tenderness Neurologic: alert, oriented x 3 Skin Exam: normal color, warm/dry Progress - Progress Progress: 12/09/17 18:46 Last Vital Signs Temp 97.9 F 12/09/17 17:25 Pulse 105 H 12/09/17 17:25 Resp 22 12/09/17 17:25 BP 125/94 12/09/17 17:25 Pulse Ox 97 12/09/17 17:25 - Results/Orders Results/Orders: Laboratory Tests 12/09/17 12/09/17 12/09/17 17:40 18:21 18:26 WBC 10.0 RBC 5.21 Hgb 13.4 Hct 40.9 MCV 78.4 L MCH 25.6 L MCHC 32.7 L RDW 18.6 H Plt Count 272 MPV 7.7 Absolute Neuts (auto) 6.10 Absolute Lymphs (auto) 3.00 Absolute Monos (auto) 0.50 Absolute Eos (auto) 0.30 Absolute Basos (auto) 0.10 Neutrophils % 61.0 Lymphocytes % 29.7 Monocytes % 5.0 Eosinophils % 3.1 Basophils % 1.2 PT 16.2 H INR 1.440 PTT (SP) 25.7 Sodium 138 Potassium 3.5 L Chloride 106 Carbon Dioxide 22 Anion Gap 13.5 BUN 13 Creatinine 0.74 BUN/Creatinine Ratio 17.6 POC Glucose 144 H Random Glucose 120 H Serum Osmolality 277.0 Calcium 8.6 Magnesium 1.8 Total Bilirubin 2.1 H* Direct Bilirubin 0.6 H Indirect Bilirubin 1.5 H AST 20 ALT 11 Alkaline Phosphatase 68 Creatine Kinase 50 CK-MB (CK-2) 2.2 CK-MB (CK-2) % Not Reportable Troponin I < 0.02 Serum Total Protein 7.1 Albumin 3.8 Lipase 23 Serum HCG, Qual Negative - EKG/XRAY/CT XRAY: chest - stable cardiomegaly CT Ordered: Yes - abd/p-hepatic -splenic congestion Departure - Departure Clinical Impression: Chronic passive hepatic congestion, History of acquired cardiomyopathy Abdominal pain Qualifiers: Abdominal location: generalized Qualified Code(s): R10.84 - Generalized abdominal pain Time of Disposition: 20:28 Disposition: Discharge to Home or Self Care Condition: Fair Departure Forms: ED Discharge - Pt. Copy, Patient Portal Self Enrollment Instructions: Cardiomyopathy, DI for Cardiomyopathy, DI for Abdominal Pain- Adult Prescriptions: Furosemide [Lasix] 20 mg PO BID #60 tab Home Medications: Ambulatory Orders Ciprofloxacin [Cipro] 250 mg PO DAILY 08/23/17 Potassium Chloride Microencaps [Klor-Con M20] 20 meq PO DAILY 08/23/17 Bifidobacterium Infantis [Align] 4 mg PO BID #60 cap 08/27/17 Carvedilol [Coreg] 3.125 mg PO BID #60 tab 08/27/17 Fluconazole 100 mg PO DAILY #2 tab 08/27/17 Furosemide 40 mg PO DAILY #30 tab 08/27/17 Glipizide 5 mg PO DAILY #30 tab 08/27/17 Lisinopril [Prinivil] 10 mg PO DAILY #30 tab 08/27/17 Potassium Chloride Tab [K-Dur] 20 meq PO DAILY #30 tab 08/27/17 metroNIDAZOLE [Flagyl] 500 mg PO TID #6 tab 08/27/17 Furosemide 20 mg PO BID #30 tab 11/14/17 Lisinopril 10 mg PO DAILY #30 tab 11/14/17 Potassium Chloride Tab [K-Dur] 20 meq PO DAILY #30 tab 11/14/17 Furosemide [Lasix] 20 mg PO BID #60 tab 12/09/17 Additional Instructions: Need to sign up with primary Md;Return to ER as needed
[2017-12-09] MEDS ORDERED: SODIUM CHLORIDE 0.9% 1000ML 1,000 ML IVS ONE (18:07)
[2017-12-09] MEDS ORDERED: ONDANSETRON INJ 4 MG/2 ML VIAL IV ONE (18:21)
[2017-12-09] MEDS ORDERED: PANTOPRAZOLE SODIUM IV 40 MG VIAL IV ONE (18:33)
[2017-12-09] MEDS ORDERED: SUCRALFATE 1 GM/10 ML 1 GM UD PO ONE (18:34)
[2017-12-09] MEDS ORDERED: ALUM & MAG HYDROX-SIMETHICONE 30 ML, LIDOCAINE VISCOUS 2% 15 ML PO ONE ×2 (18:34)
[2017-12-09] MEDS ORDERED: ALUM & MAG HYDROX-SIMETHICONE 30 ML UD ONE (18:51)
[2017-12-09] MEDS ORDERED: LIDOCAINE HCL 2% (MOUTH-THROAT) 15 ML UD ONE (18:51)
--- NOTE | 2017-12-09 19:12 | RAD ---
PROCEDURE: XR CHEST 1 VIEW HISTORY: pain COMPARISON: 11/14/2017, done at 8:36 PM TECHNIQUE: Single projection of the chest was done. FINDINGS: There is stable cardiomegaly, which may be due to cardiac enlargement or pericardial effusion . There are no discrete airspace infiltrates, pneumothoraces or pleural effusions. The pulmonary vascularity is normal. IMPRESSION: There is stable cardiomegaly, which may be due to cardiac enlargement or pericardial effusion . Electronically signed by: Zion Thao MD 12/09/2017 7:11 PM [facility] Workstation: [id number]
--- NOTE | 2017-12-09 19:15 | CT ---
EXAM DESCRIPTION: Abdoment/Pelvis w/o Contrast CLINICAL HISTORY: pain COMPARISON: None Available. TECHNIQUE: Contiguous axial images of the abdomen and pelvis were obtained followed by reconstruction images. This exam was performed according to our departmental dose-optimization program, which includes automated exposure control, adjustment of the mA and/or kV according to patient size and/or use of iterative reconstruction technique. FINDINGS: There is a small amount of pericardial fluid as well as perihepatic and perisplenic fluid and fluid in the abdomen and pelvis. Apparent mild thickening of the urinary bladder wall is most likely due to underdistention. No calcified gallstone. 3 mm left renal stone is present. No definite ureteral stone on either side. The liver, spleen, pancreas and kidneys are otherwise within normal limits. There is no hydronephrosis or other renal stones. The gallbladder is unremarkable by CT criteria. Adrenal glands are within normal limits. Aorta is of normal caliber and tapering. There is no bowel obstruction. The appendix is within normal limits. There is no pericecal inflammation. IMPRESSION: Pericardial fluid and intra-abdominal and pelvic fluid as described. No other definite acute abnormality. Electronically signed by: Matty Moncada 12/09/2017 7:14 PM TRANSFER AND LINE UP WORKER
[2017-12-09] MEDS ORDERED: FUROSEMIDE INJ 40 MG/4 ML VIAL IV ONE (20:24)
[2017-12-09 20:50] VITALS: BP 122/89; O2SAT 99
== END 2017-12-09 21:18 | disposition home or self-care (01) ==
LOC: ER 17:21
DX: K76.1 Chronic passive congestion of liver (principal); R10.84 Generalized abdominal pain; I11.0 Hypertensive heart disease with heart failure; I50.9 Heart failure, unspecified; E11.9 Type 2 diabetes mellitus without complications; I42.9 Cardiomyopathy, unspecified
CPT/HCPCS: 36415; 36416; 71045; 74176; 80048; 80076; 82550; 82553; 82948; 83690; 84484; 84703; 85025; 85610; 85730; J1940; J2405

== ENCOUNTER 2018-04-30 15:12 | Emergency (ER) | payer SELFPAY ==
[2018-04-30 15:30] VITALS: TEMP 99.1; O2SAT 99
[2018-04-30] MEDS: FUROSEMIDE 40 MG TAB PO ONE (15:47)
--- NOTE | 2018-04-30 16:05 | ED.PDOC ---
History of Present Illness - General Chief Complaint: Respiratory Problem Stated Complaint: Shortness of breath Time Seen by Provider: 04/30/18 15:15 Source: patient Exam Limitations: no limitations - History of Present Illness Initial Comments: the patient is a 32-year-old female presenting to the emergency room secondary to progressive shortness of breath over the last 2 days. She ran out of her Lasix 4 days ago. She does have a history of congestive heart failure from alcohol and drug abuse. The patient has also been taking intermittent doses of very low-dose carvedilol. She did additionally just drink recently. She is back smoking. The patient is not taking any medications for her diabetes. She is not getting set up with the primary care doctor. She does not have any interest in a prescription for any diabetic medications at this time. She is oxygenating well. Heart rates are regular and at the upper limits of normal. The patient does feel a little short of breath when lying back. She does not have significant swelling at this time. No syncope or near syncope. No chest pain except when she goes to lift something and that is due to a strained muscle.The patient reports that recently she has only been taking her Lasix every 2-3 days and that has been controlling her fluid status well up until running out of her medications recently. Allergies/Adverse Reactions: Allergies NO KNOWN ALLERGY Allergy (Verified 04/30/18 15:35) Home Medications: Ambulatory Orders Carvedilol [Coreg] 3.125 mg PO BID #60 tab 08/27/17 Furosemide 40 mg PO DAILY #30 tab 08/27/17 Glipizide 5 mg PO DAILY #30 tab 08/27/17 Potassium Chloride Tab [K-Dur] 20 meq PO DAILY #30 tab 08/27/17 Lisinopril 10 mg PO DAILY #30 tab 11/14/17 Carvedilol 0.5 tablet PO Q12HR #15 tab 04/30/18 Furosemide 40 mg PO COLBY-OT-DAY #15 tab 04/30/18 Review of Systems - Review of Systems Constitutional: States: malaise EENTM: States: no symptoms reported Respiratory: States: short of breath Cardiology: States: no symptoms reported Gastrointestinal/Abdominal: States: no symptoms reported Genitourinary: States: no symptoms reported Musculoskeletal: States: no symptoms reported Skin: States: no symptoms reported Neurological: States: no symptoms reported Endocrine: States: no symptoms reported All other Systems: No Change from Baseline Past Medical History (General) - Patient Medical History Hx Seizures: No Hx Stroke: No Hx Dementia: No Hx Asthma: No Hx of COPD: No Hx Cardiac Disorders: Yes - cardiomyopathy Hx Congestive Heart Failure: Yes Hx Pacemaker: No Hx Hypertension: Yes - Is not taking any medication currently Hx Thyroid Disease: No Hx Diabetes: Yes - Is not take any medication currently Hx Gastroesophageal Reflux: No Hx Renal Disease: No Hx Cancer: No Hx of HIV: No Hx Hepatitis C: No Hx MRSA: Yes MRSA Source:: Wound Surgical History: other - Vaccination History Hx Tetanus, Diphtheria Vaccination: - unknown Hx Influenza Vaccination: Yes - 2017 Hx Pneumococcal Vaccination: Yes - Social History Hx Tobacco Use: Yes Hx Chewing Tobacco Use: No Hx Alcohol Use: No Hx Substance Use: No Hx Substance Use Treatment: No Hx Depression: Yes Hx Physical Abuse: No Hx Emotional Abuse: No Hx Suspected Abuse: No - Female History Hx Last Menstrual Period: 11/24/17 Patient : No Family Medical History - Family History Mother Family History: Unknown Living Status: Still Living Hx Family;Other: Family hx of cardiac issues Physical Exam - Physical Exam General Appearance: Alert, Anxious, No apparent distress Eye Exam: bilateral normal Ears, Nose, Throat: hearing grossly normal, normal ENT inspection, normal pharynx Neck: non-tender, full range of motion, supple, normal inspection Respiratory: lungs clear, normal breath sounds, no respiratory distress, no accessory muscle use, other - the patient does have a strained proximal pectoralis muscle on the left Cardiovascular/Chest: normal peripheral pulses, regular rate, rhythm, no edema Peripheral Pulses: radial,right: 2+, radial,left: 2+, dorsalis pedis,right: 2+, dorsalis pedis,left: 2+ Gastrointestinal/Abdominal: non tender, soft Rectal Exam: deferred Back Exam: normal inspection, no CVA tenderness Extremity: normal range of motion, non-tender, normal inspection, no pedal edema , normal capillary refill Neurologic: 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 the patient is not in any respiratory distress and she is oxygenating well on room air. Lung gomez are actually clear. The patient does need to avoid alcohol intake as this will worsen her CHF as well as she needs to avoid any illicit drug use and smoking. The patient is going to be written for 80 mg tablets of Lasix to be taken one half tablet every other day. Additionally her blood pressures are elevated and her heart rate is at the upper limits of normal. For this reason she is going to be written for carvedilol 25 mg tablets one half tablet twice a day. She will be written for a month's worth of both of these medications. The patient needs to get in to see a primary care doctor for follow-up and routine health maintenance as well as for management of her diabetes. Her blood sugar is 179 here today which is not terrible given that she is not been taking any medications for her diabetes. ER warnings are given for any worsening. Departure - Departure Clinical Impression: Acute exacerbation of CHF (congestive heart failure) Qualifiers: Congestive heart failure type: unspecified congestive heart failure type Qualified Code(s): I50.9 - Heart failure, unspecified Disposition: Discharge to Home or Self Care Condition: Fair Departure Forms: ED Discharge - Pt. Copy, Patient Portal Self Enrollment Instructions: DI for Heart Failure Diet: diabetic diet Activity: increase activity as tolerated Prescriptions: Carvedilol 0.5 tablet PO Q12HR #15 tab Furosemide 40 mg PO COLBY-OTH-DAY #15 tab Home Medications: Ambulatory Orders Carvedilol [Coreg] 3.125 mg PO BID #60 tab 08/27/17 Furosemide 40 mg PO DAILY #30 tab 08/27/17 Glipizide 5 mg PO DAILY #30 tab 08/27/17 Potassium Chloride Tab [K-Dur] 20 meq PO DAILY #30 tab 08/27/17 Lisinopril 10 mg PO DAILY #30 tab 11/14/17 Carvedilol 0.5 tablet PO Q12HR #15 tab 04/30/18 Furosemide 40 mg PO COLBY-OTH-DAY #15 tab 04/30/18 Additional Instructions: the patient is a 32-year-old female presenting to the emergency room secondary to a mild CHF exacerbation related to her running out of her Lasix. the patient is not in any respiratory distress and she is oxygenating well on room air. Lung gomez are actually clear. The patient does need to avoid alcohol intake as this will worsen her CHF as well as she needs to avoid any illicit drug use and smoking. The patient is going to be written for 80 mg tablets of Lasix to be taken one half tablet every other day. Additionally her blood pressures are elevated and her heart rate is at the upper limits of normal. For this reason she is going to be written for carvedilol 25 mg tablets one half tablet twice a day. She will be written for a month's worth of both of these medications. The patient needs to get in to see a primary care doctor for follow-up and routine health maintenance as well as for management of her diabetes. Her blood sugar is 179 here today which is not terrible given that she is not been taking any medications for her diabetes. ER warnings are given for any worsening.
[2018-04-30 16:21] VITALS: BP 120/84
== END 2018-04-30 16:15 | disposition home or self-care (01) ==
LOC: ER 15:12
DX: I11.0 Hypertensive heart disease with heart failure (principal); I50.9 Heart failure, unspecified; E11.9 Type 2 diabetes mellitus without complications; Z79.84 Long term (current) use of oral hypoglycemic drugs

== ENCOUNTER 2018-05-12 04:42 | Emergency (ER) | payer SELFPAY ==
[2018-05-12] MEDS ORDERED: PROMETHAZINE HCL INJ 25 MG in SODIUM CHLORIDE 0.9% 50ML 50 ML IVPB ONE (05:08)
[2018-05-12] MEDS ORDERED: MORPHINE SULFATE INJ 10 MG/ML VIAL IV ONE (05:09)
--- NOTE | 2018-05-12 05:14 | ED.PDOC ---
History of Present Illness - General Source: patient Exam Limitations: no limitations - History of Present Illness Initial Comments: Patient presents with abdominal pain for 1 1/2 days. It started Saturday night. Located infrasternally with radiation to both upper quadrants. Aching and constant but intermittent in intensity. Worse with movement, better with rest. Associated with N/V today "pretty much all day" and with one loose non- bloody bowel movement today. Last meal was this morning and was normal. She had one previous episode years ago that resolved on its own. Has had a bilateral tubal ligation but no other abdominal surgeries. Patient is a . No other complaints. Timing/Duration: other - 36 hours Severity: moderate Improving Factors: rest Worsening Factors: movement Associated Symptoms: nausea/vomiting <Amrit Santiago - Last Filed: 05/12/18 07:08> <Nadine Munoz - Last Filed: 05/12/18 10:13> - General Chief Complaint: Abdominal Pain Stated Complaint: nausea, abdomen pain onset Sat night Time Seen by Provider: 05/12/18 05:02 - History of Present Illness Allergies/Adverse Reactions: Allergies NO KNOWN ALLERGY Allergy (Verified 05/12/18 04:58) Home Medications: Ambulatory Orders Carvedilol [Coreg] 3.125 mg PO BID #60 tab 08/27/17 Furosemide 40 mg PO DAILY #30 tab 08/27/17 Glipizide 5 mg PO DAILY #30 tab 08/27/17 Potassium Chloride Tab [K-Dur] 20 meq PO DAILY #30 tab 08/27/17 Lisinopril 10 mg PO DAILY #30 tab 11/14/17 Carvedilol 0.5 tablet PO Q12HR #15 tab 04/30/18 Furosemide 40 mg PO COLBY-OTH-DAY #15 tab 04/30/18 Promethazine Tab [Phenergan Tablet] 25 mg PO Q6H PRN #15 tab 05/12/18 Tramadol-Acetaminophen [Ultracet] 1 - 2 tab PO Q6HR PRN #30 tab 05/12/18 levoFLOXacin [Levaquin] 500 mg PO DAILY 10 Days #10 tab 05/12/18 Review of Systems - Review of Systems Constitutional: States: no symptoms reported EENTM: States: see HPI Respiratory: States: no symptoms reported Cardiology: States: no symptoms reported Gastrointestinal/Abdominal: States: see HPI Genitourinary: States: no symptoms reported Musculoskeletal: States: no symptoms reported Skin: States: no symptoms reported Neurological: States: no symptoms reported Endocrine: States: no symptoms reported Hematologic/Lymphatic: States: no symptoms reported <Leesa Santiagoian Filed: 05/12/18 07:08> Past Medical History (General) - Patient Medical History Hx Seizures: No Hx Stroke: No Hx Dementia: No Hx Asthma: No Hx of COPD: No Hx Cardiac Disorders: Yes - cardiomyopathy Hx Congestive Heart Failure: Yes Hx Pacemaker: No Hx Hypertension: Yes Hx Thyroid Disease: No Hx Diabetes: Yes Hx Gastroesophageal Reflux: No Hx Renal Disease: No Hx Cancer: No Hx of HIV: No Hx Hepatitis C: No Hx MRSA: Yes MRSA Source:: Wound - Vaccination History Hx Tetanus, Diphtheria Vaccination: - unknown Hx Influenza Vaccination: Yes - 2017 Hx Pneumococcal Vaccination: Yes - Social History Hx Tobacco Use: Yes Hx Chewing Tobacco Use: No Hx Alcohol Use: No Hx Substance Use: No Hx Substance Use Treatment: No Hx Depression: Yes Hx Physical Abuse: No Hx Emotional Abuse: No Hx Suspected Abuse: No - Female History Hx Last Menstrual Period: 05/05/18 Patient : No <PamelaAmrit Filed: 05/12/18 07:08> Family Medical History - Family History Mother Family History: Unknown Living Status: Still Living Hx Family;Other: Family hx of cardiac issues <PamelaAmrit Filed: 05/12/18 07:08> Physical Exam - Physical Exam General Appearance: Obvious distress - Moderate, able to lie still Eye Exam: bilateral scleral icterus Ears, Nose, Throat: hearing grossly normal, normal ENT inspection Neck: non-tender, full range of motion, supple Respiratory: chest non-tender, lungs clear, normal breath sounds, no respiratory distress Cardiovascular/Chest: normal peripheral pulses, regular rate, rhythm, no edema Gastrointestinal/Abdominal: normal bowel sounds, soft, other - TTP over infrasternal area. 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 PT ABLE TO TOLERATE PO FLUID. LABS AND DIAGNOSTIC STUDIES DISCUSSED. PT INSTRUCTED TO FOLLOW UP WITH PCP REGARDING US FINDINGS. - Results/Orders Results/Orders: 05/12/18 05:08 IV Care:Saline Lock per Protoc QSHIFT 05/12/18 05:30 EKG STAT 05/12/18 06:22 BLOOD CULTURE Stat 05/12/18 09:16 HCG,SERUM Stat Laboratory Results - last 24 hr 05/12/18 05/12/18 05/12/18 05:07 05:10 05:15 WBC 14.2 H RBC 4.46 Hgb 14.1 Hct 41.1 MCV 92.1 MCH 31.6 H MCHC 34.3 RDW 15.9 H Plt Count 269 MPV 7.8 Absolute Neuts (auto) 10.10 H Absolute Lymphs (auto) 3.00 Absolute Monos (auto) 0.60 Absolute Eos (auto) 0.40 Absolute Basos (auto) 0.10 Neutrophils % 71.2 Lymphocytes % 21.4 Monocytes % 4.1 Eosinophils % 2.5 Basophils % 0.8 Sodium Potassium Chloride Carbon Dioxide Anion Gap BUN Creatinine BUN/Creatinine Ratio POC Glucose 150 H Random Glucose Serum Osmolality Lactic Acid Calcium Total Bilirubin GGT AST ALT Alkaline Phosphatase Creatine Kinase CK-MB (CK-2) CK-MB (CK-2) % Troponin I B-Natriuretic Peptide Serum Total Protein Albumin Globulin Albumin/Globulin Ratio Lipase Serum HCG, Qual Negative Urine HCG, Qual Cancelled 05/12/18 05/12/18 05/12/18 05:15 05:15 05:15 WBC RBC Hgb Hct MCV MCH MCHC RDW Plt Count MPV Absolute Neuts (auto) Absolute Lymphs (auto) Absolute Monos (auto) Absolute Eos (auto) Absolute Basos (auto) Neutrophils % Lymphocytes % Monocytes % Eosinophils % Basophils % Sodium 137 Potassium 3.4 L Chloride 104 Carbon Dioxide 23 Anion Gap 13.4 BUN 19 H Creatinine 0.49 L BUN/Creatinine Ratio 38.8 H POC Glucose Random Glucose 165 H Serum Osmolality 279.8 Lactic Acid Calcium 8.7 Total Bilirubin 2.2 H* GGT 52 AST 25 ALT 15 Alkaline Phosphatase 74 Creatine Kinase 88 CK-MB (CK-2) 4.7 H* CK-MB (CK-2) % 5.34 H Troponin I < 0.02 B-Natriuretic Peptide 1630.0 H* Serum Total Protein 7.3 Albumin 3.8 Globulin 3.5 Albumin/Globulin Ratio 1.1 Lipase 19 L Serum HCG, Qual Urine HCG, Qual 05/12/18 06:22 WBC RBC Hgb Hct MCV MCH MCHC RDW Plt Count MPV Absolute Neuts (auto) Absolute Lymphs (auto) Absolute Monos (auto) Absolute Eos (auto) Absolute Basos (auto) Neutrophils % Lymphocytes % Monocytes % Eosinophils % Basophils % Sodium Potassium Chloride Carbon Dioxide Anion Gap BUN Creatinine BUN/Creatinine Ratio POC Glucose Random Glucose Serum Osmolality Lactic Acid 1.1 Calcium Total Bilirubin GGT AST ALT Alkaline Phosphatase Creatine Kinase CK-MB (CK-2) CK-MB (CK-2) % Troponin I B-Natriuretic Peptide Serum Total Protein Albumin Globulin Albumin/Globulin Ratio Lipase Serum HCG, Qual Urine HCG, Qual <Nadine Munoz - Last Filed: 05/12/18 10:13> Departure <Amrit Santiago - Last Filed: 05/12/18 07:08> - Departure Time of Disposition: 10:08 Diet: low fat, low cholesterol <Nadine Munoz Bulmaro - Last Filed: 05/12/18 10:13> - Departure Clinical Impression: Cholecystitis, Nausea & vomiting Disposition: Discharge to Home or Self Care Condition: Good Departure Forms: ED Discharge - Pt. Copy, Patient Portal Self Enrollment Instructions: DI for Abdominal Pain-Adult Referrals: Fred Cornejo MD [Primary Care Provider] - 1-2 Weeks Prescriptions: Tramadol-Acetaminophen [Ultracet] 1 - 2 tab PO Q6HR PRN #30 tab PRN Reason: Pain levoFLOXacin [Levaquin] 500 mg PO DAILY 10 Days #10 tab Promethazine Tab [Phenergan Tablet] 25 mg PO Q6H PRN #15 tab PRN Reason: Nausea/Vomiting Home Medications: Ambulatory Orders Carvedilol [Coreg] 3.125 mg PO BID #60 tab 08/27/17 Furosemide 40 mg PO DAILY #30 tab 08/27/17 Glipizide 5 mg PO DAILY #30 tab 08/27/17 Potassium Chloride Tab [K-Dur] 20 meq PO DAILY #30 tab 08/27/17 Lisinopril 10 mg PO DAILY #30 tab 11/14/17 Carvedilol 0.5 tablet PO Q12HR #15 tab 04/30/18 Furosemide 40 mg PO COLBY-OTH-DAY #15 tab 04/30/18 Promethazine Tab [Phenergan Tablet] 25 mg PO Q6H PRN #15 tab 05/12/18 Tramadol-Acetaminophen [Ultracet] 1 - 2 tab PO Q6HR PRN #30 tab 05/12/18 levoFLOXacin [Levaquin] 500 mg PO DAILY 10 Days #10 tab 05/12/18
[2018-05-12] MEDS ORDERED: PROMETHAZINE HCL INJ 25 MG/ML VIAL ONE (05:18)
[2018-05-12] MEDS ORDERED: SODIUM CHLORIDE 0.9% 50ML 50 ML ONE (05:19)
[2018-05-12] MEDS ORDERED: ASPIRIN (CHEWABLE) 81 MG TAB PO ONE (05:20)
[2018-05-12] MEDS ORDERED: SODIUM CHLORIDE 0.9% 1000ML 1,000 ML IVS ONE (05:53)
--- NOTE | 2018-05-12 05:59 | RAD ---
EXAM: Single view chest. INDICATION: Chest pain. COMPARISON: Chest x-ray: None. FINDINGS: Cardiac silhouette: Enlarged Rita: Pulmonary vascular congestion Lobar consolidation: None. Pleural effusion: None. Pneumothorax: None. Other: None. Bones: Unremarkable. Other: None. IMPRESSION: Pulmonary vascular congestion with cardiomegaly Electronically signed by: Damien Bazan MD 05/12/2018 5:57 AM CDT Workstation: [id number]
[2018-05-12 09:09] VITALS: TEMP 98.8; O2SAT 96
--- NOTE | 2018-05-12 09:40 | US ---
EXAM DESCRIPTION: Gall Bladder: ULTRASOUND. CLINICAL HISTORY: RUQ ABD PAIN, ELEVATED BILIRUBIN COMPARISON: Chest x-ray on the same visit. TECHNIQUE: Transabdominal scanning: Vaughn-scale and Doppler modes. FINDINGS: Gallbladder: normal size, shape, echogenicity; no intraluminal stones or sludge. No fluid around the gallbladder. Thickening wall 3.6 mm patient slept during procedure, technologist unable to define tenderness from transducer pressure. Common bile duct: caliber 3.8 mm within normal limits. Liver: normal echogenicity; contour liver capsule smooth where seen. No fluid around the liver. Intrahepatic biliary ducts normal caliber. Doppler hepatopedal flow portal vein.. Normal caliber. Long axis right lobe 15.4 cm. Pancreas: normal size and echogenicity. Duct not seen. Right kidney: Long axis is 10.9 cm. Normal cortical thickness and echogenicity. No hydronephrosis or perinephric fluid. IMPRESSION: 1. No stones or sludge in the gallbladder but wall is thickened. Patient sleeping during the procedure. Technologist unable to define tenderness from transducer pressure. This could represent chronic cholecystitis. 2. Normal size and echogenicity of the liver with smooth capsule, normal vascularity, normal intrahepatic ducts. No ascites. 3. Pancreas and right kidney are unremarkable. CRITICAL COMMUNICATION: The critical value was discussed directly in person with Dr. Jasen Garcia at approximately 935 hours, on May 12, 2018. Electronically signed by: Matty Baer MD 05/12/2018 9:39 AM CDT
[2018-05-12 10:14] VITALS: BP 118/86
== END 2018-05-12 10:38 | disposition home or self-care (01) ==
LOC: ER 04:42
DX: K81.9 Cholecystitis, unspecified (principal); F32.9 Major depressive disorder, single episode, unspecified; I11.0 Hypertensive heart disease with heart failure; E11.9 Type 2 diabetes mellitus without complications; I50.9 Heart failure, unspecified; Z79.899 Other long term (current) drug therapy; Z87.891 Personal history of nicotine dependence
CPT/HCPCS: 36415; 36416; 71045; 76705; 80053; 82550; 82553; 82948; 82977; 83605; 83690; 83880; 84484; 84703; 85025; 87040; 93005; A4216; J2270; J2550; J7030

== ENCOUNTER 2018-12-04 10:33 | Emergency (ER) | payer SELFPAY ==
[2018-12-04 10:47] VITALS: O2SAT 99
[2018-12-04] MEDS ORDERED: NITROGLYCERIN 0.4 MG 25 EA TAB SL ONE (11:00)
[2018-12-04] MEDS ORDERED: SODIUM CHLORIDE 0.9% (FLUSH) 10 ML SYG IV PRN (11:00)
[2018-12-04] MEDS ORDERED: ASPIRIN TABLET 325 MG TAB PO ONE (11:00)
--- NOTE | 2018-12-04 11:04 | ED.PDOC ---
History of Present Illness - General Chief Complaint: Respiratory Problem Stated Complaint: Shortness of breath x 3 days Time Seen by Provider: 12/04/18 10:54 Source: patient Exam Limitations: no limitations - History of Present Illness Initial Comments: Pt has had SOB x 3 days with distended abd and orthopnea. Hx of CHF from cardiomyopathy. Denies chest pain Severity: moderate Activities at Onset: none Possible Cause: occasional episodes Improving Factors: immobilization Worsening Factors: movement Associated Symptoms: weakness Respiratory Risk Factors: no cause identified Allergies/Adverse Reactions: Allergies NO KNOWN ALLERGY Allergy (Verified 05/12/18 04:58) Home Medications: Ambulatory Orders Carvedilol [Coreg] 3.125 mg PO BID #60 tab 08/27/17 Furosemide 40 mg PO DAILY #30 tab 08/27/17 Glipizide 5 mg PO DAILY #30 tab 08/27/17 Potassium Chloride Tab [K-Dur] 20 meq PO DAILY #30 tab 08/27/17 Lisinopril 10 mg PO DAILY #30 tab 11/14/17 Carvedilol 0.5 tablet PO Q12HR #15 tab 04/30/18 Furosemide 40 mg PO COLBY-OTH-DAY #15 tab 04/30/18 Promethazine Tab [Phenergan Tablet] 25 mg PO Q6H PRN #15 tab 05/12/18 Tramadol-Acetaminophen [Ultracet] 1 - 2 tab PO Q6HR PRN #30 tab 05/12/18 levoFLOXacin [Levaquin] 500 mg PO DAILY 10 Days #10 tab 05/12/18 Acetamin W/Cod #3 Tab [Tylenol w/CODEINE #3] 1 ea PO Q6HRS #5 tab 07/01/18 Promethazine Supp [Phenergan Suppository] 12.5 mg NH Q6HRS #5 sup 07/01/18 Metformin HCl [Metformin HCl ER (Osmotic] 500 mg PO BID #60 tab 12/04/18 Review of Systems - Review of Systems Constitutional: Denies: chills, fever EENTM: States: no symptoms reported Respiratory: States: orthopnea, short of breath. Denies: cough, wheezing Cardiology: Denies: chest pain, edema Gastrointestinal/Abdominal: Denies: abdominal pain, nausea, vomiting Genitourinary: States: no symptoms reported Musculoskeletal: States: no symptoms reported Skin: States: no symptoms reported Neurological: States: no symptoms reported Endocrine: States: no symptoms reported Hematologic/Lymphatic: States: no symptoms reported Past Medical History (General) - Patient Medical History Hx Seizures: No Hx Stroke: No Hx Dementia: No Hx Asthma: No Hx of COPD: No Hx Cardiac Disorders: Yes - cardiomyopathy Hx Congestive Heart Failure: Yes Hx Pacemaker: No Hx Hypertension: Yes Hx Thyroid Disease: No Hx Diabetes: Yes Hx Gastroesophageal Reflux: No Hx Renal Disease: No Hx Cancer: No Hx of HIV: No Hx Hepatitis C: No Hx MRSA: Yes MRSA Source:: Wound - Vaccination History Hx Tetanus, Diphtheria Vaccination: Yes Hx Influenza Vaccination: Yes Hx Pneumococcal Vaccination: Yes - Social History Hx Tobacco Use: Yes Hx Chewing Tobacco Use: No Hx Alcohol Use: Yes Hx Substance Use: Yes Hx Substance Use Treatment: No Hx Depression: Yes Hx Physical Abuse: No Hx Emotional Abuse: No Hx Suspected Abuse: No - Female History Patient is a Female of Child Bearing Age (10 -59 yrs old): Yes Hx Last Menstrual Period: 05/05/18 Patient : No Family Medical History - Family History Mother Family History: Unknown Living Status: Still Living Hx Family;Other: Family hx of cardiac issues Physical Exam - Physical Exam General Appearance: Alert, Comfortable Eyes, Ears, Nose, Throat Exam: PERRL/EOMI, pharynx normal Neck: supple, normal inspection Respiratory: lungs clear, no respiratory distress Cardiovascular/Chest: normal peripheral pulses, regular rate, rhythm, no edema Gastrointestinal/Abdominal: normal bowel sounds, non tender, soft, distended Neurologic: alert, normal mood/affect, oriented x 3 Skin Exam: normal color, warm/dry Lymphatic: no adenopathy Progress - EKG/XRAY/CT EKG: Sinus, nonspecific ST T wave Chg Comments: Rate 81, NH 148, QRS 102, QTc 490 Departure - Departure Clinical Impression: Hyperglycemia Dyspnea, unspecified Qualifiers: Dyspnea type: unspecified Qualified Code(s): R06.00 - Dyspnea, unspecified Disposition: Discharge to Home or Self Care Departure Forms: ED Discharge - Pt. Copy, Patient Portal Self Enrollment Referrals: Fred Cornejo MD [Primary Care Provider] - 1-2 Weeks Prescriptions: Metformin HCl [Metformin HCl ER (Osmotic] 500 mg PO BID #60 tab Home Medications: Ambulatory Orders Carvedilol [Coreg] 3.125 mg PO BID #60 tab 08/27/17 Furosemide 40 mg PO DAILY #30 tab 08/27/17 Glipizide 5 mg PO DAILY #30 tab 08/27/17 Potassium Chloride Tab [K-Dur] 20 meq PO DAILY #30 tab 08/27/17 Lisinopril 10 mg PO DAILY #30 tab 11/14/17 Carvedilol 0.5 tablet PO Q12HR #15 tab 04/30/18 Furosemide 40 mg PO COLBY-OTH-DAY #15 tab 04/30/18 Promethazine Tab [Phenergan Tablet] 25 mg PO Q6H PRN #15 tab 05/12/18 Tramadol-Acetaminophen [Ultracet] 1 - 2 tab PO Q6HR PRN #30 tab 05/12/18 levoFLOXacin [Levaquin] 500 mg PO DAILY 10 Days #10 tab 05/12/18 Acetamin W/Cod #3 Tab [Tylenol w/CODEINE #3] 1 ea PO Q6HRS #5 tab 07/01/18 Promethazine Supp [Phenergan Suppository] 12.5 mg NH Q6HRS #5 sup 07/01/18 Metformin HCl [Metformin HCl ER (Osmotic] 500 mg PO BID #60 tab 12/04/18
[2018-12-04] MEDS ORDERED: FUROSEMIDE INJ 40 MG/4 ML VIAL IV ONE (11:06)
--- NOTE | 2018-12-04 11:38 | RAD ---
EXAM DESCRIPTION: Chest,1 View CLINICAL HISTORY: SOB COMPARISON: May 12, 2018 IMPRESSION: Single AP portable upright view of the chest shows mild enlargement of the cardiac silhouette without pulmonary vascular congestion similar to previous. Lungs are normally aerated and clear. No obvious pleural effusion or pneumothorax is seen. Electronically signed by: Guy Sy MD 12/04/2018 11:37 AM [employer]
[2018-12-04] MEDS ORDERED: INSULIN, REG.(HUMAN) 100 U/ML VIAL SUBCU ONE (12:26)
[2018-12-04 13:12] VITALS: BP 137/88; TEMP 97
== END 2018-12-04 13:13 | disposition home or self-care (01) ==
LOC: ER 10:33
DX: R06.02 Shortness of breath (principal); E11.65 Type 2 diabetes mellitus with hyperglycemia; I50.9 Heart failure, unspecified; I11.0 Hypertensive heart disease with heart failure; F32.9 Major depressive disorder, single episode, unspecified; Z79.899 Other long term (current) drug therapy; Z87.891 Personal history of nicotine dependence; Z79.84 Long term (current) use of oral hypoglycemic drugs
CPT/HCPCS: 36415; 71045; 80048; 81001; 82550; 82553; 83880; 84484; 85025; 85379; 85610; 85730; 93005; J1940

== ENCOUNTER 2018-12-24 17:40 | Emergency (ER) | payer SELFPAY ==
--- NOTE | 2018-12-24 17:58 | ED.PDOC ---
History of Present Illness - General Chief Complaint: General Stated Complaint: Coughing, fever, congestion, headache Time Seen by Provider: 12/24/18 17:47 Source: patient Exam Limitations: no limitations - History of Present Illness Initial Comments: Ping Whitely 33 y/o female came to er stating had slightly productive cough for the last one week then today had 2 episodes of N/V.Has history of cardiomyopathy under treatment .Did not get flu immunization this year. Timing/Duration: other - see hpi Severity: moderate Improving Factors: nothing Worsening Factors: nothing Associated Symptoms: other - see hpi Allergies/Adverse Reactions: Allergies NO KNOWN ALLERGY Allergy (Verified 05/12/18 04:58) Home Medications: Ambulatory Orders Carvedilol [Coreg] 3.125 mg PO BID #60 tab 08/27/17 Furosemide 40 mg PO DAILY #30 tab 08/27/17 Metformin HCl [Metformin HCl ER (Osmotic] 500 mg PO BID #60 tab 12/04/18 Oseltamivir Capsule [Tamiflu] 75 mg PO DAILY 10 Days #10 capsule 12/24/18 Review of Systems - Review of Systems Constitutional: States: no symptoms reported EENTM: States: see HPI, nose congestion Respiratory: States: see HPI, cough Cardiology: States: no symptoms reported Gastrointestinal/Abdominal: States: see HPI Genitourinary: States: no symptoms reported Musculoskeletal: States: no symptoms reported Skin: States: no symptoms reported Endocrine: States: no symptoms reported Hematologic/Lymphatic: States: no symptoms reported All other Systems: Reviewed and Negative, No Change from Baseline Past Medical History (General) - Patient Medical History Hx Seizures: No Hx Stroke: No Hx Dementia: No Hx Asthma: No Hx of COPD: No Hx Cardiac Disorders: Yes - cardiomyopathy Hx Congestive Heart Failure: Yes Hx Pacemaker: No Hx Hypertension: Yes Hx Thyroid Disease: No Hx Diabetes: Yes Hx Gastroesophageal Reflux: No Hx Renal Disease: No Hx Cancer: No Hx of HIV: No Hx Hepatitis C: No Hx MRSA: Yes MRSA Source:: Wound Surgical History: other - btl; - Vaccination History Hx Tetanus, Diphtheria Vaccination: Yes Hx Influenza Vaccination: Yes Hx Pneumococcal Vaccination: Yes - Social History Hx Tobacco Use: Yes Hx Chewing Tobacco Use: No Hx Alcohol Use: Yes Hx Substance Use: Yes Hx Substance Use Treatment: No Hx Depression: Yes Hx Physical Abuse: No Hx Emotional Abuse: No Hx Suspected Abuse: No - Female History Hx Last Menstrual Period: 12/05/18 Patient : No Family Medical History - Family History Mother Family History: Unknown Living Status: Still Living Hx Family Cancer: Yes - mom Hx Family;Other: Family hx of cardiac issues Physical Exam - Physical Exam General Appearance: Alert, Comfortable, No apparent distress Eye Exam: bilateral normal Ears, Nose, Throat: hearing grossly normal, normal ENT inspection Neck: non-tender, full range of motion, supple, normal inspection Respiratory: chest non-tender, lungs clear, normal breath sounds, no respiratory distress Cardiovascular/Chest: normal peripheral pulses, regular rate, rhythm, no murmur Peripheral Pulses: radial,right: 2+, radial,left: 2+ Gastrointestinal/Abdominal: normal bowel sounds, non tender, soft, no organomegaly Back Exam: no CVA tenderness, no vertebral tenderness Extremity: no pedal edema, no calf tenderness Neurologic: alert, oriented x 3 Skin Exam: normal color, warm/dry Progress - Progress Progress: 12/24/18 18:04 12/24/18 17:53 INFLUENZA A & B BY PCR Stat 12/24/18 17:58 IV Care:Saline Lock per Protoc QSHIFT COMPLETE METABOLIC PROFILE Stat CBC (AUTOMATED) W/AUTO DIFF Stat Chest,1 View [RAD] Stat 12/24/18 18:02 LIPASE Stat Vital Signs - 8 hr 12/24/18 17:52 Temperature 98.4 F Pulse Rate [ 88 Left Radial] Respiratory 18 Rate Blood Pressure 154/103 [Left Arm] O2 Sat by Pulse 98 Oximetry - Results/Orders Results/Orders: 12/24/18 17:58 IV Care:Saline Lock per Protoc QSHIFT Laboratory Results - last 24 hr 12/24/18 12/24/18 12/24/18 16:05 16:05 16:05 WBC 9.6 RBC 4.36 Hgb 14.1 Hct 40.2 MCV 92.2 MCH 32.2 H MCHC 35.0 RDW 12.5 Plt Count 250 MPV 7.1 L Absolute Neuts (auto) 6.70 Absolute Lymphs (auto) 2.10 Absolute Monos (auto) 0.50 Absolute Eos (auto) 0.30 Absolute Basos (auto) 0.10 Neutrophils % 69.2 Lymphocytes % 21.8 Monocytes % 4.7 Eosinophils % 3.2 Basophils % 1.1 Sodium 133 L Potassium 3.1 L Chloride 97 L Carbon Dioxide 26 Anion Gap 13.1 BUN 11 Creatinine 0.63 BUN/Creatinine Ratio 17.5 Random Glucose 282 H Serum Osmolality 276.0 Calcium 8.3 L Total Bilirubin 1.1 H AST 38 ALT 31 Alkaline Phosphatase 108 Serum Total Protein 7.2 Albumin 3.7 Globulin 3.5 Albumin/Globulin Ratio 1.1 Lipase 34 Discuss all test result with patient no flu but since exposed to friend tested positive for flu discuss prophylaxis with tamiflu and agreed. - EKG/XRAY/CT XRAY: chest - no acute abnormalities Departure - Departure Clinical Impression: Flu-like symptoms Time of Disposition: 19:16 Disposition: Discharge to Home or Self Care Condition: Fair Departure Forms: ED Discharge - Pt. Copy, Patient Portal Self Enrollment Instructions: Viral Syndrome (DC) Referrals: Fred Cornejo MD [Primary Care Provider] - 1-2 Weeks Prescriptions: Oseltamivir Capsule [Tamiflu] 75 mg PO DAILY 10 Days #10 capsule Home Medications: Ambulatory Orders Carvedilol [Coreg] 3.125 mg PO BID #60 tab 08/27/17 Furosemide 40 mg PO DAILY #30 tab 08/27/17 Metformin HCl [Metformin HCl ER (Osmotic] 500 mg PO BID #60 tab 12/04/18 Oseltamivir Capsule [Tamiflu] 75 mg PO DAILY 10 Days #10 capsule 12/24/18 Additional Instructions: May take over the counter Claritin or Zyrtec as directed on package;Tylenol 500 mg every 6 hours for pain as needed;Return to ER as needed
[2018-12-24 18:00] VITALS: O2SAT 98
[2018-12-24] MEDS: PROCHLORPERAZINE INJ 10 MG/2 ML VIAL IV ONE (18:15)
[2018-12-24] MEDS: BENZONATATE PERLES 100 MG CAP PO ONE (18:22)
[2018-12-24] MEDS: hydrOXYzine HCl 25 MG TAB PO ONE (18:22)
[2018-12-24] MEDS ORDERED: diphenhydrAMINE HCL 50 MG/ML VIAL ONE (18:31)
[2018-12-24] MEDS: diphenhydrAMINE HCL 50 MG/ML VIAL IV ONE (18:34)
--- NOTE | 2018-12-24 18:38 | RAD ---
EXAM DESCRIPTION: Chest,1 View CLINICAL HISTORY: cough COMPARISON: December 04, 2018 FINDINGS: Cardiac silhouette is within normal limits. There is no focal parenchymal or pleural disease. There is no acute osseous process visualized. IMPRESSION: No evidence of acute cardiopulmonary disease. Electronically signed by: Rajan Rodriguez MD 12/24/2018 6:35 PM [employer]ENT[employer]
[2018-12-24 19:41] VITALS: BP 123/87; TEMP 97.8
== END 2018-12-24 19:42 | disposition home or self-care (01) ==
LOC: ER 17:40
DX: J11.1 Influenza due to unidentified influenza virus with other respiratory manifestations (principal); F32.9 Major depressive disorder, single episode, unspecified; I50.9 Heart failure, unspecified; I11.0 Hypertensive heart disease with heart failure; E11.9 Type 2 diabetes mellitus without complications; Z87.891 Personal history of nicotine dependence; Z79.899 Other long term (current) drug therapy
CPT/HCPCS: 36415; 71045; 80053; 83690; 85025; 87502; J0780; J1200

== ENCOUNTER 2019-11-04 12:06 | Emergency (ER) | payer SELFPAY ==
[2019-11-04 12:31] VITALS: O2SAT 98
--- NOTE | 2019-11-04 12:44 | ED.PDOC ---
History of Present Illness - General Chief Complaint: Dental/Mouth Stated Complaint: left upper jaw pain Time Seen by Provider: 11/04/19 12:25 Source: patient, RN notes reviewed, Vital Signs reviewed Exam Limitations: no limitations - History of Present Illness Initial Comments: patient is a 34-year-old female who presents with complaints of left upper jaw pain. Patient states that she has a tooth that intermittently gets infected and causes her pain. In a long time. Patient also mentions that she's had worsening shortness of breath. Patient does have a history of CHF and has been off of her medicines for months. Today they gave her a Lasix pill because she was so short of breath. Eyes any fever, chills, nausea, vomiting, diarrhea. Patient denies any chest pain. Her shortness of breath is worse with exertion and improves with rest. Denies any headache, blurry vision or photophobia. The shortness of breath is worse with exertion as stated previously. And improved with rest. The toothache is a 6 out of 10, worse with food, also worse with cold liquids. Severity: moderate Associated Symptoms: shortness of breath Allergies/Adverse Reactions: Allergies NO KNOWN ALLERGY Allergy (Verified 05/12/18 04:58) Home Medications: Ambulatory Orders Acetaminophen W/ Codeine [Tylenol W/ CODEINE #3] 1 ea PO Q6H #12 11/04/19 Penicillin V Pot Tab [Veetids] 500 mg PO QID #40 tab 11/04/19 Review of Systems - Review of Systems Constitutional: States: no symptoms reported, see HPI EENTM: States: see HPI, mouth pain, mouth swelling Respiratory: States: see HPI, short of breath Cardiology: States: no symptoms reported, see HPI. Denies: chest pain, edema, palpitations, syncope Gastrointestinal/Abdominal: States: no symptoms reported. Denies: abdominal pain, nausea, vomiting Genitourinary: States: no symptoms reported. Denies: dysuria, frequency, hematuria Musculoskeletal: States: no symptoms reported. Denies: back pain, joint pain, joint swelling, muscle pain, muscle stiffness, neck pain Skin: States: no symptoms reported Neurological: States: no symptoms reported. Denies: headache, seizure, tingling, tremors, weakness Endocrine: States: no symptoms reported Hematologic/Lymphatic: States: no symptoms reported All other Systems: Reviewed and Negative Past Medical History (General) - Patient Medical History Hx Seizures: No Hx Stroke: No Hx Dementia: No Hx Asthma: No Hx of COPD: No Hx Cardiac Disorders: Yes - cardiomyopathy Hx Congestive Heart Failure: Yes Hx Pacemaker: No Hx Hypertension: Yes Hx Thyroid Disease: No Hx Diabetes: Yes Hx Gastroesophageal Reflux: No Hx Renal Disease: No Hx Cancer: No Hx of HIV: No Hx Hepatitis C: No Hx MRSA: Yes MRSA Source:: Wound - Vaccination History Hx Tetanus, Diphtheria Vaccination: Yes Hx Influenza Vaccination: Yes Hx Pneumococcal Vaccination: Yes - Social History Hx Tobacco Use: Yes Hx Chewing Tobacco Use: No Hx Alcohol Use: Yes Hx Substance Use: Yes Hx Substance Use Treatment: No Hx Depression: Yes Hx Physical Abuse: No Hx Emotional Abuse: No Hx Suspected Abuse: No - Female History Hx Last Menstrual Period: 12/05/18 Patient : No Family Medical History - Family History Mother Family History: Unknown Living Status: Still Living Hx Family Cancer: Yes - mom Hx Family;Other: Family hx of cardiac issues Physical Exam - Physical Exam General Appearance: Alert, Comfortable, Obese, Well Developed, Well Groomed, Well Hydrated, Well Nourished Eye Exam: bilateral normal, bilateral abnormal EOM Ears, Nose, Throat: hearing grossly normal, normal ENT inspection, other - patient with fractured tooth #2 with tenderness to percussion. Neck: non-tender, full range of motion, supple, normal inspection Respiratory: chest non-tender, lungs clear, no respiratory distress, crackles - in the bases bilaterally. 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 Plan discharge home at this time with medications for a dental infection and pain medicines. On workup here patient was found to be remarkably elevated triglycerides and her cholesterol. I have arranged for her to follow up in the indigent care clinic at [facility] and will discharge patient directly from here to the clinic. Care with the patient and she voices understanding and agreement. Nicholas Snow M.D. #[id number] - Results/Orders Results/Orders: 11/04/19 12:25 Sodium Chloride 0.9% (Flush) [Saline Flush Syringe] 10 ml IV PRN PRN 11/04/19 12:26 IV Care:Saline Lock per Protoc QSHIFT 11/04/19 12:28 TROPONIN-I Stat 11/04/19 12:30 EKG STAT Laboratory Results - last 24 hr 11/04/19 11/04/19 11/04/19 12:28 12:28 12:35 WBC 8.1 RBC 4.65 Hgb 14.8 Hct 42.9 MCV 92.2 MCH 32.2 H MCHC 34.9 RDW 13.1 Plt Count 227 MPV 7.3 L Absolute Neuts (auto) 5.30 Absolute Lymphs (auto) 2.00 Absolute Monos (auto) 0.40 Absolute Eos (auto) 0.30 Absolute Basos (auto) 0.10 Neutrophils % 66.2 Lymphocytes % 24.5 Monocytes % 5.0 Eosinophils % 3.5 Basophils % 0.8 Sodium 128 L Potassium 3.7 Chloride 94 L Carbon Dioxide 25 Anion Gap 12.7 BUN 7 Creatinine 0.40 L BUN/Creatinine Ratio 17.5 Random Glucose 484 H* Serum Osmolality Not Reportable Calcium 8.2 L Total Bilirubin 0.8 Direct Bilirubin 0.2 Indirect Bilirubin 0.6 AST 82 H ALT 62 H Alkaline Phosphatase 115 B-Natriuretic Peptide 6.3 Serum Total Protein 6.2 L Albumin 3.8 Triglycerides 4806 H Cholesterol 530 H* Cholesterol Risk Factr 25.2 H LDL Cholesterol Direct 49.5 HDL Cholesterol 21 L Lipase 42 Urine Color Urine Appearance Urine pH Ur Specific [place] Urine Protein Urine Glucose (UA) Urine Ketones Urine Blood Urine Nitrite Urine Bilirubin Urine Urobilinogen Ur Leukocyte Esterase Urine RBC Urine WBC Ur Epithelial Cells Urine Bacteria Urine Mucus 11/04/19 12:55 WBC RBC Hgb Hct MCV MCH MCHC RDW Plt Count MPV Absolute Neuts (auto) Absolute Lymphs (auto) Absolute Monos (auto) Absolute Eos (auto) Absolute Basos (auto) Neutrophils % Lymphocytes % Monocytes % Eosinophils % Basophils % Sodium Potassium Chloride Carbon Dioxide Anion Gap BUN Creatinine BUN/Creatinine Ratio Random Glucose Serum Osmolality Calcium Total Bilirubin Direct Bilirubin Indirect Bilirubin AST ALT Alkaline Phosphatase B-Natriuretic Peptide Serum Total Protein Albumin Triglycerides Cholesterol Cholesterol Risk Factr LDL Cholesterol Direct HDL Cholesterol Lipase Urine Color Yellow Urine Appearance Clear Urine pH 6.5 Ur Specific [place] 1.010 Urine Protein Negative Urine Glucose (UA) 500 H Urine Ketones Negative Urine Blood Large H Urine Nitrite Negative Urine Bilirubin Negative Urine Urobilinogen 0.2 Ur Leukocyte Esterase Negative Urine RBC 10-20 H Urine WBC 0-1 Ur Epithelial Cells 1-3 Urine Bacteria Rare Urine Mucus Trace EKG performed 04 November 2019 at 1236 hrs.: Normal sinus rhythm with sinus arrhythmia at 80 bpm, prolonged QT at 418 ms, abnormal EKG. No comparison EKG. EXAM DESCRIPTION: Chest,2 Views CLINICAL HISTORY: sob, hx of chf off meds x months. COMPARISON: December 24, 2018 FINDINGS: Two-view chest x-ray shows mild enlargement of the cardiac silhouette without pulmonary vascular congestion. Stable from previous. The lungs are normally aerated and clear. Costophrenic angles are sharp. Osseous structures are unremarkable IMPRESSION: No radiographic evidence of acute cardiopulmonary disease. 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 5XXA - Fracture of tooth (traumatic), initial encounter for closed fracture Time of Disposition: 14:24 Disposition: Discharge to Home or Self Care Condition: Good Departure Forms: ED Discharge - Pt. Copy, Patient Portal Self Enrollment Instructions: DI for Dental Pain, Tooth Decay, Adult (DC), High Cholesterol (DC), High Triglycerides Referrals: Fred Cornejo MD [Primary Care Provider] - 1-2 Weeks Aric Dumont MD [Active Staff] - 1-2 Days Prescriptions: Acetaminophen W/ Codeine [Tylenol W/ CODEINE #3] 1 ea PO Q6H #12 Penicillin V Pot Tab [Veetids] 500 mg PO QID #40 tab Home Medications: Ambulatory Orders Acetaminophen W/ Codeine [Tylenol W/ CODEINE #3] 1 ea PO Q6H #12 11/04/19 Penicillin V Pot Tab [Veetids] 500 mg PO QID #40 tab 11/04/19
--- NOTE | 2019-11-04 13:15 | RAD ---
EXAM DESCRIPTION: Chest,2 Views CLINICAL HISTORY: sob, hx of chf off meds x months. COMPARISON: December 24, 2018 FINDINGS: Two-view chest x-ray shows mild enlargement of the cardiac silhouette without pulmonary vascular congestion. Stable from previous. The lungs are normally aerated and clear. Costophrenic angles are sharp. Osseous structures are unremarkable IMPRESSION: No radiographic evidence of acute cardiopulmonary disease. Electronically signed by: Guy Sy MD 11/04/2019 1:13 PM [facility]
[2019-11-04] MEDS: LIDOCAINE HCL 2% (MOUTH-THROAT) 15 ML UD MT ONE (13:31)
[2019-11-04] MEDS: SODIUM CHLORIDE 0.9% (FLUSH) 10 ML SYG IV PRN (13:34)
[2019-11-04 14:38] VITALS: BP 167/117; TEMP 97.8
== END 2019-11-04 14:37 | disposition home or self-care (01) ==
LOC: ER 12:06
DX: S02.5XXA Fracture of tooth (traumatic), initial encounter for closed fracture (principal); K02.9 Dental caries, unspecified; K04.7 Periapical abscess without sinus; E78.1 Pure hyperglyceridemia; E78.2 Mixed hyperlipidemia; R06.02 Shortness of breath; I49.9 Cardiac arrhythmia, unspecified; I45.81 Long QT syndrome; F32.9 Major depressive disorder, single episode, unspecified; I50.9 Heart failure, unspecified; I11.0 Hypertensive heart disease with heart failure; E11.9 Type 2 diabetes mellitus without complications; Z87.891 Personal history of nicotine dependence

== ENCOUNTER 2020-12-05 11:29 | Inpatient (IN) | payer SELFPAY ==
--- NOTE | 2020-12-05 11:49 | ED.PDOC ---
History of Present Illness - General Chief Complaint: Abdominal Pain Stated Complaint: abdominal pain Time Seen by Provider: 12/05/20 11:49 Source: patient Exam Limitations: no limitations Additional Information: Patient complains of sudden onset of severe pain in the left upper quadrant 30 minutes prior to admission.She also has significant pain at the right upper quadrant. She last ate a small amount of food about 1 hour ago. Patient complains of vomiting Frequently since the onset of her pain. She denies urinary symptoms. She is on her menstrual period now.Patient still has her ga llbladder and appendix. Patient has a history of congestive heart failure, the reason for which is unknown to her. - History of Present Illness Timing/Duration: 1/2 hour Severity: severe Improving Factors: nothing Worsening Factors: nothing Allergies/Adverse Reactions: Allergies NO KNOWN ALLERGY Allergy (Verified 12/05/20 12:06) Home Medications: Ambulatory Orders Acetaminophen [Tylenol] 650 mg PO Q6H PRN #30 tab 02/01/20 Amoxicillin & Pot Clavulanate [Augmentin Tab] 875 mg PO BID 10 Days #20 tab 02/01/20 Ibuprofen 600 mg PO Q6H PRN #20 tab 02/01/20 Review of Systems - Review of Systems Constitutional: States: no symptoms reported EENTM: States: no symptoms reported Respiratory: States: short of breath - Chronic, unchanged from baseline Cardiology: States: chest pain - Patient gives inconsistent History when asked regarding Chest pain. At first she stated her pain is intermittent and not at baseline. Later she said she has a sharp pain from the left lower lung field which radiates to theUpper chest area. Past Medical History (General) - Patient Medical History Hx Seizures: No Hx Stroke: No Hx Dementia: No Hx Asthma: No Hx of COPD: No Hx Cardiac Disorders: Yes - cardiomyopathy Hx Congestive Heart Failure: Yes Hx Pacemaker: No Hx Hypertension: Yes Hx Thyroid Disease: No Hx Diabetes: Yes Hx Gastroesophageal Reflux: No Hx Renal Disease: No Hx Cancer: No Hx of HIV: No Hx Hepatitis C: No Hx MRSA: Yes MRSA Source:: Wound - Vaccination History Hx Tetanus, Diphtheria Vaccination: Yes Hx Influenza Vaccination: No Hx Pneumococcal Vaccination: Yes - Social History Hx Tobacco Use: Yes Hx Chewing Tobacco Use: No Hx Alcohol Use: Yes Hx Substance Use: Yes Hx Substance Use Treatment: No Hx Depression: Yes Hx Physical Abuse: No Hx Emotional Abuse: No Hx Suspected Abuse: No - Female History Hx Last Menstrual Period: 12/05/18 Patient : No Family Medical History - Family History Mother Family History: Unknown Living Status: Still Living Hx Family Cancer: Yes - mom Hx Family;Other: Family hx of cardiac issues Physical Exam - Physical Exam General Appearance: Agitated, Alert, Obvious distress Eye Exam: bilateral normal Ears, Nose, Throat: normal ENT inspection, other - No significant dryness of mucous membranes noted. Neck: non-tender, full range of motion Respiratory: chest non-tender, lungs clear, normal breath sounds, no respiratory distress Cardiovascular/Chest: normal peripheral pulses, regular rate, rhythm, no edema, no gallop, no JVD Gastrointestinal/Abdominal: normal bowel sounds, tenderness - Very tender right upper quadrant left upper quadrant without rebound.No distention. 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 Potassium 20 mill he equivalents is added to 1 L bag of normal saline along with an insulin drip at 0.14 units/kg/h. Morphine 4 mg and Zofran 4 mg IV for pain and nausea. 12/05/20 14:02 Serum ketones are negative and serum pH is 7.329.Ultrasound is negative for acute cholecystitis or gallstones but does suggest acute pancreatitis.Admission decision made admission or transfer will be initiated. 12/05/20 14:10 Insulin drip and potassium infusion discontinued. Will give insulin subcu 9 units stat. 12/05/20 14:13 Patient admits to recent alcohol intake. Pulse 99, blood pressure 163/108, sats 97% room air.Patient appears more comfortable after medications. Awaiting callback from admitting provider at [facility]. 12/05/20 14:40 Discussed with general surgeon on-call, Dr. Augusto Ash Admit to medical service. Discussed with hospitalist on-call,Nurse practitioner Wei Mar: Will accept for admission to the floor. - Results/Orders Results/Orders: Vital Signs - 24 hr 12/05/20 11:50 Temperature 97.7 F Pulse Rate [ 82 pulse ox] Respiratory 22 Rate Blood Pressure 180/131 [Left Arm] O2 Sat by Pulse 99 Oximetry 12/05/20 12:01 CARDIAC ENZYME GROUP Stat COMPLETE METABOLIC PROFILE Stat LACTIC ACID Stat LIPASE Stat CBC (AUTOMATED) W/AUTO DIFF Stat Chest,1 View [RAD] Stat URINALYSIS Stat 12/05/20 12:04 GLUCOSE, FINGER STICK Routine BOLUS Sodium Chloride 0.9% 1000ML [Ns 1000 ml] 1,000 ml IVS ONCE EKG Assessment ONCE 12/05/20 12:05 Gall Bladder [US] Stat 12/05/20 12:10 D-DIMER,QUANTITATIVE Stat PROTHROMBIN TIME Stat PTT [PARTIAL THROMBOPLASTIN TIME] Stat 12/05/20 12:12 RAPID SARS-CoV-2 RNA Stat 12/05/20 12:15 EKG STAT Arterial blood gas: pH 7.329, PCO2 33.4, PO2 88.3.Serum ketones are negative. Cardiogram normal sinus rhythm, 86/min, OK interval 152, QRS 96, QTc 490. No acute STT changes. Departure - Departure Clinical Impression: Pancreatitis, acute Qualifiers: Pancreatitis type: alcohol induced Acute pancreatitis complication: no infection or necrosis Qualified Code(s): K85.20 - Alcohol induced acute pancreatitis without necrosis or infection Gastritis due to alcohol without hemorrhage Qualifiers: Chronicity: acute Qualified Code(s): K29.20 - Alcoholic gastritis without bleeding Vomiting Qualifiers: Vomiting type: unspecified Vomiting Intractability: intractable Nausea presence: with nausea Qualified Code(s): R11.2 - Nausea with vomiting, unspecified Disposition: Discharge to Home or Self Shelter Medications: Ambulatory Orders Acetaminophen [Tylenol] 650 mg PO Q6H PRN #30 tab 02/01/20 Amoxicillin & Pot Clavulanate [Augmentin Tab] 875 mg PO BID 10 Days #20 tab 02/01/20 Ibuprofen 600 mg PO Q6H PRN #20 tab 02/01/20 Decision To Admit - Decistion To Admit Decision to Admit Date: 12/05/20 Decision to Admit Time: 14:10
[2020-12-05] MEDS ORDERED: ONDANSETRON INJ 4 MG/2 ML VIAL ONE (12:01)
[2020-12-05] MEDS ORDERED: ONDANSETRON INJ 4 MG/2 ML VIAL IV ONE ×2 (12:04→13:57)
[2020-12-05] MEDS ORDERED: SODIUM CHLORIDE 0.9% 1000ML 1,000 ML IVS ONE ×3 (12:04→20:50)
[2020-12-05] MEDS ORDERED: MORPHINE SULFATE INJ 10 MG/ML VIAL IV ONE ×2 (12:04→13:57)
--- NOTE | 2020-12-05 12:49 | RAD ---
EXAM DESCRIPTION: Chest,1 View CLINICAL HISTORY: 35 years Female, Chest pain COMPARISON: Previous study February 01, 2020 TECHNIQUE: AP portable chest. FINDINGS: Heart size is large with normal pulmonary vascularity. No consolidating infiltrate. No pulmonary mass or worrisome nodule. No pneumothorax or pleural effusion. Bones are unremarkable. IMPRESSION: Large heart without congestive failure. Electronically signed by: Joey David MD 12/05/2020 12:47 PM HOSPITAL DIRECTOR
--- NOTE | 2020-12-05 13:38 | US ---
EXAM DESCRIPTION: Gall Bladder: ULTRASOUND. CLINICAL HISTORY: RUQ pain COMPARISON: CT scan abdomen and pelvis June 2018. TECHNIQUE: Transabdominal scanning: Vaughn-scale and Doppler modes. Technical note: Patient was nonfasting, (fasting only for 1 hour). FINDINGS: Gallbladder: normal size, shape, echogenicity; no intraluminal stones or sludge. No fluid around the gallbladder. No wall thickening. 1.7 mm. tender while scanning over the pancreas region. Common bile duct: caliber 4.6 mm within normal limits. Liver: Heterogeneously increased echogenicity; contour liver capsule smooth where seen. No fluid around the liver. Intrahepatic biliary ducts normal caliber. Doppler hepatopedal flow portal vein not recorded.. Normal caliber portal vein:. 12.5 mm. Long axis right lobe 18.6 cm. Pancreas: Questionable enlargement of the pancreatic tail. Decreased echogenicity in the tail. Duct not seen. No fluid around the pancreas. Aorta: 1.3 cm normal caliber. Right kidney: long axis is 12.2 cm; volume 236.6 mm. Normal cortical thickness and echogenicity. No echogenic stones or hydronephrosis. No perirenal fluid. IMPRESSION: 1. Gallbladder is unremarkable, and common bile duct normal caliber, but abdominal tenderness while scanning over the pancreas. The tail may be thickened and hypoechoic, suggesting pancreatitis. No cysts or surrounding fluid collection. 2. Fatty liver mildly enlarged. Normal caliber of the ducts and portal vein. The caliber of the proximal abdominal aorta and IVC. Right kidney is negative. Electronically signed by: Matty Baer MD 12/05/2020 1:36 PM REAL PROPERTY EVALUATOR
[2020-12-05] MEDS ORDERED: KCL 20 MEQ/NS 1,000 ML IVS ONE (13:47)
[2020-12-05] MEDS ORDERED: KCL 20 MEQ/NS 1,000 ML IVS PRN (13:50)
[2020-12-05] MEDS ORDERED: INSULIN, REG.(HUMAN) 250 UNITS in SODIUM CHL 0.9% 250ML (AVIVA) 247.5 ML IVPB ONE ×2 (14:00)
[2020-12-05] MEDS ORDERED: INSULIN, REG.(HUMAN) 100 U/ML VIAL SUBCU ONE ×2 (14:09→19:54)
--- NOTE | 2020-12-05 15:17 | HP ---
SUPERVISING PHYSICIAN: Akin Gloria MD CHIEF COMPLAINT: Left upper quadrant pain. HISTORY OF PRESENT ILLNESS: Ms. Whitley is a 35-year-old female who presented to the Emergency Room today complaining of some abdominal pain located in the upper left quadrant. She said it started about 30 minutes prior to arrival. She noted that over the last week she has actually been having some discomfort in the left upper quadrant, but significantly increased about an hour after she ate some food today. She denies any significant alcohol usage. She does have a history of untreated diabetes and hypertension and supposedly has a history of congestive heart failure. She still has her gallbladder and appendix and is currently in her menstrual cycle. Workup in the Emergency Room showed a white count of 15,300 with a left shift. Her chemistries showed a sodium 125, blood sugar 436 correct her actual sodium to 133. She did have an anion gap of 19.4, but ketones were negative. Creatinine was 0.44. Initial lactic acid was 3.0, but more significantly was her lipase was 1226 and triglycerides 5,184. She did have a slight bump in her AST at 50. Bilirubin was only slightly elevated at 1.2. Gallbladder ultrasound in the ER was unremarkable, common bile duct normal. There was some noted abdominal tenderness overlying the pancreas. Tail was noted to be thicken and hypoechogenic, but no obvious pancreatitis. This was followed up with a CT of the abdomen with contrast and per radiologic interpretation, mild peripancreatic inflammatory changes could not be excluded of the tail. Again, there was note of fatty infiltration of the liver. Given her pain, she was given Dilaudid and IV fluids and was requested by the ER physician to be admitted for acute management of pancreatitis and uncontrolled hyperglycemia. She was admitted in stable condition. PAST MEDICAL HISTORY: 1. Congestive heart failure, uncertain etiology, without echocardiogram available at time of admission. 2. Hypertension. 3. Diabetes mellitus, type 2, not currently on any therapy. 4. Chronic methamphetamine abuse. 5. Chronic alcohol abuse. 6. Last menstrual period: Current. PAST SURGICAL HISTORY: 1. . 2. Tubal ligation. HOME MEDICATIONS: She is not currently on any home medications. ALLERGIES: NO KNOWN DRUG ALLERGIES. FAMILY HISTORY: Positive for strokes, congestive heart failure, hypertension, pancreatitis and diabetes. SOCIAL HISTORY: The patient lives in [place]. She does have a history of smoking since age 18, one-half pack per day. She has a history of both tobacco and methamphetamine abuse with reported alcohol abuse. She is a single mother with I believe 4 children. REVIEW OF SYSTEMS: CONSTITUTIONAL: Denies any fevers, chills, general malaise or unintentional weight loss. HEENT: Denies headaches, sore throats, earaches, nasal congestion, vision changes. RESPIRATORY: Denies coughing, wheezing or shortness of breath. CARDIOVASCULAR: Denies chest pain, palpitations or syncopal episodes. GASTROINTESTINAL: As noted in history of present illness. She has the left upper quadrant pain that radiates into her back. No reported nausea, vomiting, diarrhea, constipation. GENITOURINARY: Denies dysuria, hematuria, polyuria. MUSCULOSKELETAL: Denies any joint swelling. SKIN: Denies lesions, rashes, moles or unexplained changes. NEUROLOGIC: Denies ataxia, seizures, migraines, headaches, vision changes, syncopal episodes or any focal motor deficits. HEMATOLOGIC: Denies unexplained bleeding, bruising or transfusion reactions. PHYSICAL EXAMINATION: VITAL SIGNS: Temperature 98.1, pulse 86, blood pressure 163/107, respirations 18, saturation 97% on room air. GENERAL: The patient looks to be uncomfortable, but not in any obvious acute distress. HEENT: Tympanic membranes clear bilaterally. Oropharynx is pink with notable dry mucous membranes. NECK: Supple, nontender with full range of motion. No jugular venous distention noted. RESPIRATORY: Lung sounds are clear to auscultation bilaterally without any rhonchi, wheezes or rales. CARDIOVASCULAR: Regular rate and rhythm without any appreciable murmurs, gallops, or rubs. ABDOMEN: Notably tender to palpation in the left upper quadrant. No obvious rebound tenderness. No peritoneal signs. BACK: No CVA or vertebral tenderness. EXTREMITIES: There is no cyanosis, clubbing or edema. NEUROLOGIC: Cranial nerves II-XII are grossly intact. The patient is alert and oriented times three. SKIN: Warm, pink and dry. LABORATORY: White count 15,300, hemoglobin 15.6, hematocrit 45.1, platelet count 349,000. Differential does show a left shift. Coagulation studies showed normal D-dimer. Chemistries showed initial sodium 125, blood sugar 436, corrected her sodium to 133. Potassium 3.4, CO2 low at 17 with anion gap of 19.4, ketones negative. BUN 11, creatinine 0.44, calcium 8.4. Magnesium is pending. Bilirubin 1.2, AST slightly elevated at 50, ALT normal at 40, troponin less than 0.05. BNP normal at less than 15. Lipase elevated at 1226, amylase pending, triglycerides 5184, cholesterol 597. Urinalysis showed 100 protein, 500 glucose, large amount of blood, ketones greater than 150. Microscopic revealed 5 to 10 RBCs, 10 to 20 WBCs, 10 to 20 epithelials, 1+ bacteria. Serum ketones were negative. MICROBIOLOGY: Urine culture pending. COVID swab was negative. RADIOLOGY: Gallbladder ultrasound showed gallbladder unremarkable, common bile duct normal. There was note of abdominal tenderness scanning the pancreas, the tail may be thickened with hypoechogenic suggesting pancreatitis. Liver was noted to be fatty. ASSESSMENT: 1. Acute pancreatitis secondary to severely elevated triglyceride levels. 2. Diabetes mellitus, type 2, with hemoglobin A1c currently of 10 not currently on treatment. 3. Hypertension, not on any treatment plan. 4. Hyperosmolar/hyperglycemic with mild metabolic acidosis secondary to pancreatitis. PLAN: Ms. Whitley is going to be admitted for treatment of pancreatitis. Given her blood pressure greater than 400 and triglycerides greater than 5000, we will start her on fairly aggressive treatment with insulin drip protocol, q.1h. blood sugars. We will check her BMP every 4 hours and recheck triglycerides in 12 hours. I will give her 2 liters of fluid initially followed by infusion based on labs. Once she stabilizes, we will stop the insulin drip and continue with q.6h. as needed until she can transition to oral diet. In the meantime, we will control her blood sugar with lisinopril and Catapres. She will be started on daily lisinopril 10 mg. Once her triglycerides have normalized, she will need to be started on appropriate medication regimen and will need followup and further management of her medications. I have also ordered a surgical consultation with Dr. Leon. Until the patient can transition to outpatient management, we will continue to monitor and treat as needed. #[id number] [facility]
[2020-12-05] MEDS ORDERED: SODIUM CHLORIDE 0.9% (FLUSH) 10 ML SYG IV PRN (18:14)
[2020-12-05] MEDS ORDERED: GLUCAGON INJ 1 MG VIAL SUBCU PRN (18:14)
[2020-12-05] MEDS ORDERED: DEXTROSE 50% 25 GM/50 ML SYG IV PRN (18:14)
--- NOTE | 2020-12-05 19:12 | CT ---
EXAM: CT Abdomen and Pelvis With Intravenous Contrast CLINICAL HISTORY: The patient is 35 years old and is Female; acute pancreatits TECHNIQUE: Axial computed tomography images of the abdomen and pelvis with intravenous contrast. Sagittal and coronal reformatted images were created and reviewed. This CT exam was performed using one or more of the following dose reduction techniques: automated exposure control, adjustment of the mA and/or kV according to patient size, and/or use of iterative reconstruction technique. COMPARISON: July 01, 2018 FINDINGS: There is significant motion at the upper abdomen which markedly limits evaluation. Cannot exclude mild inflammatory changes around the pancreatic tail. There is fatty infiltration of liver. No liver lesions seen. Spleen, adrenal glands, kidneys, ureters, bladder within normal limits. Bowel is within normal limits. No evidence of obstruction. No acute osseous abnormality. Soft tissues within normal limits. IMPRESSION: 1. Significant motion markedly limits evaluation of the upper abdomen. Cannot exclude peripancreatic inflammatory changes. Recommend clinical correlation and Consider repeat imaging. 2. Hepatic steatosis. Electronically signed by: Curry Jimenez MD 12/05/2020 7:10 PM [facility]
[2020-12-05] MEDS: PANTOPRAZOLE SODIUM IV 40 MG VIAL IV SCH (19:36)
[2020-12-05] MEDS: MORPHINE SULFATE INJ 10 MG/ML VIAL IV PRN (19:36)
[2020-12-05] MEDS ORDERED: KETOROLAC TROMETHAMINE INJ 30 MG/ML VIAL IV ONE (19:44)
[2020-12-05] MEDS: IV SET AND CAP CHANGE INJ INJ SCH (19:53)
[2020-12-05] MEDS: ENOXAPARIN SODIUM 40 MG/0.4 ML SYG SUBCU SCH (20:33)
[2020-12-05] MEDS ORDERED: SODIUM CHL 0.9% 250ML (AVIVA) 250 ML IVPB ONE (20:50)
[2020-12-05] MEDS: INSULIN, REG.(HUMAN) 250 UNITS in SODIUM CHL 0.9% 250ML (AVIVA) 247.5 ML IVPB SCH ×2 (21:13)
[2020-12-05] MEDS ORDERED: cloNIDine HCL 0.1 MG TAB PO ONE (22:50)
[2020-12-05] MEDS ORDERED: LISINOPRIL 10 MG TAB PO ONE (22:50)
[2020-12-05] MEDS: ONDANSETRON INJ 4 MG/2 ML VIAL IV PRN (23:05)
[2020-12-05] MEDS: KCL 20 MEQ/NS 1,000 ML IVS PRN (23:57)
[2020-12-06] MEDS ORDERED: INSULIN LISPRO 100 UNITS/ML PEN SUBCU SCH
[2020-12-06] MEDS: MORPHINE SULFATE INJ 10 MG/ML VIAL IV PRN ×6 (03:58→21:45)
[2020-12-06] MEDS: KCL 20 MEQ/NS 1,000 ML IVS PRN (04:02)
[2020-12-06] MEDS: KCL 20MEQ/D5 1/2NS 1,000 ML IVS PRN ×3 (05:36→17:43)
[2020-12-06] MEDS ORDERED: KETOROLAC TROMETHAMINE INJ 30 MG/ML VIAL IV ONE (06:48)
[2020-12-06] MEDS ORDERED: SODIUM CHL 0.9% 250ML (AVIVA) 250 ML IVPB ONE (07:59)
[2020-12-06] MEDS: INSULIN, REG.(HUMAN) 250 UNITS in SODIUM CHL 0.9% 250ML (AVIVA) 247.5 ML IVPB SCH ×4 (08:15→20:14)
[2020-12-06] MEDS: LISINOPRIL 10 MG TAB PO SCH (08:18)
[2020-12-06] MEDS: POTASSIUM PHOSPHATE 500 MG TAB PO SCH ×4 (10:41→21:33)
[2020-12-06] MEDS: ONDANSETRON INJ 4 MG/2 ML VIAL IV PRN (13:53)
[2020-12-06] MEDS: PANTOPRAZOLE SODIUM IV 40 MG VIAL IV SCH (17:42)
[2020-12-06] MEDS: INSULIN DETEMIR 100 UNITS/ML PEN SUBCU SCH ×2 (17:43→21:33)
[2020-12-06] MEDS ORDERED: INSULIN LISPRO 100 UNITS/ML PEN SUBCU ONE (20:01)
[2020-12-06] MEDS: KCL 20MEQ/D5NS 1,000 ML IVS PRN (21:28)
[2020-12-06] MEDS: ENOXAPARIN SODIUM 40 MG/0.4 ML SYG SUBCU SCH (21:29)
--- NOTE | 2020-12-06 22:31 | PN ---
SUPERVISING PHYSICIAN: Akin Gloria M.D. DATE: 12/06/20 SUBJECTIVE: The patient remains on her insulin drip. She notes that her pain is still fairly high at times, but has been in much better control since admission. She has not had any nausea or vomiting. She remains NPO. She remains afebrile. OBJECTIVE: VITAL SIGNS: Temperature 97.3, pulse 82, blood pressure 145/91, respirations 18, satting 97% on room air. GENERAL: The patient appears to be resting comfortably in no obvious acute distress. She is alert. CHEST: Clear to auscultation. HEART: Regular rhythm. ABDOMEN: Soft, reagent tender to palpation on the left upper quadrant. EXTREMITIES: Without edema. NEUROLOGIC: She is alert and oriented times three. LABORATORY: White count 14,800, platelet count 286,000. Differential does show a left shift. Chemistries at 1600 today showed sodium 130 corrected for 236 blood sugar to 133, potassium 3.1, anion gap is low as well as CO2 at 18, creatinine is less than 0.4, calcium 7.3. Phosphorus this morning was 1.7, magnesium was normal at 1.8. Lipase was down to 561 with triglycerides going from 5,184 to 2,823. MICROBIOLOGY: Urine culture shows no growth currently. RADIOLOGY: No additional radiographic studies. ASSESSMENT: 1. Acute pancreatitis secondary to elevated triglyceride levels. 2. Diabetes mellitus, type 2, poorly controlled with current hemoglobin A1c of 10. 3. Hypertension, poorly controlled not on current treatment. 4. Hyperosmolar/hyperglycemic with mild metabolic acidosis secondary to pancreatitis showing some slight improvement with treatment. PLAN: I did call and talk to Dr. Barcenas about the case regarding her phosphorus levels and continuing on insulin drip. He recommended that we continue on insulin drip at least for another 12 hours and hopefully be able to transition her to subcue insulin. She does not appear to be in any evidence of true diabetic ketoacidosis, but it is easier at this time, I think, with the insulin drip. My goal is to transition her since she has been on insulin drip for 24 hours and start her on a basal long-acting insulin in the form of Levemir. Will give her an initial 40 units. Will order it b.i.d. and then transition her off of the insulin drip. Once we do this will hopefully be able to go to every 6 hour Accucheks as well as every 4 hours BMPs. Will follow her triglyceride levels every 12 hours. We did start her on some phosphorus replacement in the form of K-Phos. Will check those levels in the morning. I think at this point again is to touch base with Dr. Barcenas with AM lab. In regards to her hypertension, I have started her on some Lisinopril which she seems to respond to well, but she will certainly need to go home on something keno terminal operator as well as further management of her triglyceride levels with oral medication along with oral hyperglycemic agents. Hopefully will be able to transition her to outpatient management within the next [address] Leon has seen the patient. Will await his further recommendations. Until then continue to monitor and treat as needed. #[id number] [facility]
[2020-12-07] MEDS: MORPHINE SULFATE INJ 10 MG/ML VIAL IV PRN ×7 (00:01→22:07)
[2020-12-07] MEDS: ONDANSETRON INJ 4 MG/2 ML VIAL IV PRN ×3 (00:02→20:34)
[2020-12-07] MEDS ORDERED: INSULIN LISPRO 100 UNITS/ML PEN SUBCU ONE ×3 (00:25→05:08)
[2020-12-07] MEDS ORDERED: KCL 40 MEQ/D5 1/2NS 1,000 ML IVS ONE ×2 (05:03→05:07)
[2020-12-07] MEDS: INSULIN DETEMIR 100 UNITS/ML PEN SUBCU SCH ×2 (08:30→21:17)
[2020-12-07] MEDS: LISINOPRIL 10 MG TAB PO SCH (08:38)
[2020-12-07] MEDS: POTASSIUM PHOSPHATE 500 MG TAB PO SCH ×4 (08:38→20:42)
[2020-12-07] MEDS ORDERED: MAGNESIUM SULFATE PREMIX 2GM 2 GM in PREMIX BAG 1 BAG IVPB ONE (10:18)
[2020-12-07] MEDS: INSULIN, REG.(HUMAN) 250 UNITS in SODIUM CHL 0.9% 250ML (AVIVA) 247.5 ML IVPB SCH ×2 (10:36)
[2020-12-07] MEDS: INSULIN LISPRO 100 UNITS/ML PEN SUBCU SCH ×2 (12:15→18:27)
[2020-12-07] MEDS: KCL 20MEQ/D5NS 1,000 ML IVS PRN ×2 (12:32→20:34)
[2020-12-07] MEDS: PANTOPRAZOLE SODIUM IV 40 MG VIAL IV SCH (17:49)
[2020-12-07] MEDS: ENOXAPARIN SODIUM 40 MG/0.4 ML SYG SUBCU SCH (20:43)
[2020-12-08] MEDS ORDERED: KCL 20MEQ/D5 1/2NS 1,000 ML IVS PRN (00:17)
[2020-12-08] MEDS: INSULIN LISPRO 100 UNITS/ML PEN SUBCU SCH ×5 (00:35→21:15)
[2020-12-08] MEDS: MORPHINE SULFATE INJ 10 MG/ML VIAL IV PRN ×5 (00:35→18:36)
[2020-12-08] MEDS: ONDANSETRON INJ 4 MG/2 ML VIAL IV PRN ×3 (04:25→18:37)
[2020-12-08] MEDS ORDERED: POTASSIUM PHOSPHATE 500 MG TAB ONE ×3 (07:01→16:10)
[2020-12-08] MEDS ORDERED: KCL 20MEQ/WATER FOR INJ 100ML 20 MEQ in PREMIX BAG 1 BAG IVPB ONE (08:01)
--- NOTE | 2020-12-08 08:05 | PN ---
SUPERVISING PHYSICIAN: Akin Gloria MD DATE: 12/07/20 SUBJECTIVE: The patient is lying in bed asleep. She awakens easily. She still continues complaints of some abdominal pain, but it has improved. She has no nausea or vomiting. We discussed her plan of care. Hopefully, we can start her back on some oral fluids in the next 24 to 48 hours. OBJECTIVE: VITAL SIGNS: Temperature 97.9, heart rate 94, blood pressure 127/88, respiratory rate 18, O2 saturation 100% on room air. RESPIRATORY: Essentially clear to auscultation bilaterally. CARDIAC: Regular rate and rhythm. GASTROINTESTINAL: Abdomen is soft, nondistended. It is diffusely tender essentially in the epigastric and right and left upper quadrant. There is no rebound tenderness or guarding. Bowel sounds are positive. NEUROLOGIC: Awake, alert and oriented times three. LABORATORY: WBCs 10,700, hemoglobin 13.3, hematocrit 38. Sodium 134, potassium 3.3, chloride 105, BUN less than 6, creatinine less than 0.4, glucose 240. Her last fingerstick check was 189. Calcium 8, phosphorous 2.3, magnesium 1.6, total bilirubin 1.4, creatinine kinase 17, triglycerides 784, amylase 187, lipase 204. All other labs and films have been reviewed via the EMR. ASSESSMENT: 1. Acute pancreatitis secondary to elevated triglyceride levels. 2. Diabetes mellitus, type 2, poorly controlled with current hemoglobin A1c of 10. 3. Hypertension, poorly controlled not on current treatment. 4. Hyperosmolar/hyperglycemic with mild metabolic acidosis secondary to pancreatitis showing some slight improvement with treatment. PLAN: We will continue present supportive care. She received some magnesium supplementation. I called Dr. Barcenas about her phosphorous level and her insulin drip has been discontinued. He had no recommendations for further phosphorous replacement, but to check it in the morning. She will need to be on tight blood sugar control with insulin as well as medications for her hypertriglyceridemia. At this point, she is still NPO and hopefully we can transition her to some oral fluids in the morning. I will also talk to Dr. Leon in regards to her clinical progress. We will continue to monitor and treat as needed. #[id number] [facility]
[2020-12-08] MEDS ORDERED: KCL 20MEQ/WATER FOR INJ 100ML 100 ML IVPB ONE (08:45)
[2020-12-08] MEDS: POTASSIUM PHOSPHATE 500 MG TAB PO SCH ×4 (09:01→20:45)
[2020-12-08] MEDS: LISINOPRIL 10 MG TAB PO SCH (09:02)
[2020-12-08] MEDS: INSULIN DETEMIR 100 UNITS/ML PEN SUBCU SCH ×2 (09:02→21:14)
[2020-12-08] MEDS ORDERED: KCL 20MEQ/D5 1/2NS 0 ML IVS ONE (16:11)
[2020-12-08] MEDS ORDERED: POTASSIUM CHLORIDE 20 MEQ TAB PO ONE (17:01)
[2020-12-08] MEDS: PANTOPRAZOLE SODIUM IV 40 MG VIAL IV SCH (17:44)
[2020-12-08] MEDS: IV SET AND CAP CHANGE INJ INJ SCH (18:07)
--- NOTE | 2020-12-08 19:08 | PN ---
SUPERVISING PHYSICIAN: Akin Gloria M.D. DATE: 12/08/20 SUBJECTIVE: The patient is lying in bed. She is on her phone. She has no complaints of nausea or vomiting. We discussed her discharge plans in that she would need to have some diabetic education and she would be on diabetic medications after discharge. She will also have to have close watch of her triglycerides and will need to decide on a primary care physician at some point, and I suggested [facility]. She has not been nauseated today. Denies chest pain. OBJECTIVE: VITAL SIGNS: Temperature 97.4, heart rate 85, blood pressure 139/87, respiratory rate 24, O2 saturation 100% on room air. RESPIRATORY: Essentially clear to auscultation bilaterally. CARDIAC: Regular rate and rhythm. NEUROLOGIC: She is awake, alert and oriented times three. LABORATORY: WBCs are 8,000 with hemoglobin 12.4, hematocrit 35.2. Sodium 137, potassium 3, chloride 106, glucose 164, calcium 8.1, phosphorus 2.3, magnesium 1.8. Total bilirubin 1.3, AST 53, amylase 59, lipase 89. All other labs and films have been reviewed via the EMR. ASSESSMENT: 1. Acute pancreatitis secondary to elevated triglyceride levels. 2. Diabetes mellitus, type 2, poorly controlled with current hemoglobin A1c of 10. 3. Hypertension, poorly controlled not on current treatment. 4. Hyperosmolar/hyperglycemic with mild metabolic acidosis secondary to pancreatitis showing continued improvement with treatment. PLAN: We will continue present supportive care. I will repeat her labs in the morning. Dr. Leon has signed off on her chart. He felt that she could advance her diet to a clear liquid today and to start a full liquid tomorrow. The coat hanger shaper machine operator, Irma Del Rio, had some information for a diabetic diet that she has put together for the patient and will sit down and discuss with it tomorrow. She will need fairly extensive education on her new diabetes medications as well as her other medications that she will be started on. I suggested that she go to [facility] for followup. I have reduced her IV fluids and changed her sliding scale insulin to a.c. and h.s. Hopefully she can be discharged in the next 48 hours or so. #[id number] [facility]
[2020-12-08] MEDS: ENOXAPARIN SODIUM 40 MG/0.4 ML SYG SUBCU SCH (20:45)
[2020-12-09] MEDS ORDERED: POTASSIUM PHOSPHATE 500 MG TAB ONE (06:52)
[2020-12-09] MEDS: INSULIN LISPRO 100 UNITS/ML PEN SUBCU SCH ×2 (07:26→12:48)
[2020-12-09] MEDS: POTASSIUM PHOSPHATE 500 MG TAB PO SCH (07:41)
[2020-12-09] MEDS: LISINOPRIL 10 MG TAB PO SCH (08:00)
[2020-12-09] MEDS: INSULIN DETEMIR 100 UNITS/ML PEN SUBCU SCH (09:16)
[2020-12-09] MEDS: MORPHINE SULFATE INJ 10 MG/ML VIAL IV PRN (09:16)
[2020-12-09 10:19] VITALS: O2SAT 99
[2020-12-09 12:03] VITALS: BP 129/79; TEMP 97.5
--- NOTE | 2020-12-15 10:55 | DS ---
SUPERVISING PHYSICIAN: Akin Gloria MD ADMISSION DIAGNOSIS: 1. Acute pancreatitis secondary to severely elevated triglyceride levels. 2. Diabetes mellitus, type 2, with hemoglobin A1c currently of 10 not currently on treatment. 3. Hypertension, not on any treatment plan. 4. Hyperosmolar/hyperglycemic with mild metabolic acidosis secondary to pancreatitis. DISCHARGE DIAGNOSIS: 1. Acute pancreatitis secondary to elevated triglyceride levels. 2. Diabetes mellitus, type 2, poorly controlled with current hemoglobin A1c of 10. 3. Hypertension, poorly controlled not on current treatment. 4. Hyperosmolar/hyperglycemic with mild metabolic acidosis secondary to pancreatitis showing continued improvement with treatment. REASON FOR HOSPITALIZATION: Ms. Whitley is a 35-year-old female who presented to the Emergency Room today complaining of some abdominal pain located in the upper left quadrant. She said it started about 30 minutes prior to arrival. She noted that over the last week she has actually been having some discomfort in the left upper quadrant, but significantly increased about an hour after she ate some food today. She denies any significant alcohol usage. She does have a history of untreated diabetes and hypertension and supposedly has a history of congestive heart failure. She still has her gallbladder and appendix and is currently in her menstrual cycle. Workup in the Emergency Room showed a white count of 15,300 with a left shift. Her chemistries showed a sodium 125, blood sugar 436 correct her actual sodium to 133. She did have an anion gap of 19.4, but ketones were negative. Creatinine was 0.44. Initial lactic acid was 3.0, but more significantly was her lipase was 1226 and triglycerides 5,184. She did have a slight bump in her AST at 50. Bilirubin was only slightly elevated at 1.2. Gallbladder ultrasound in the ER was unremarkable, common bile duct normal. There was some noted abdominal tenderness overlying the pancreas. Tail was noted to be thicken and hypoechogenic, but no obvious pancreatitis. This was followed up with a CT of the abdomen with contrast and per radiologic interpretation, mild peripancreatic inflammatory changes could not be excluded of the tail. Again, there was note of fatty infiltration of the liver. Given her pain, she was given Dilaudid and IV fluids and was requested by the ER physician to be admitted for acute management of pancreatitis and uncontrolled hyperglycemia. She was admitted in stable condition. LABORATORY: White count on admission was 15,300, discharge 7,500. Hemoglobin 14.5, hematocrit 40.9, platelet count 301,000. Differential on discharge is without a left shift. Coagulation studies showed D-dimer 176. Chemistries at discharge showed sodium 137, potassium 3.4, BUN less than 6, creatinine 0.4. Blood sugars range between 124 and 188. Bilirubin 1.4, AST 91, ALT 76, alkaline phosphatase 134. Initial triglycerides on admission were 5,184. Triglycerides on discharge down to 383. Amylase normal. Lipase down to 79. Urinalysis on admission showed 500 glucose, 100 protein, large amount of blood, 10 to 20 epithelials with 5 to 10 RBCs, 10 to 20 WBCs. Negative urine HCG. Bacteria 1+. Serum ketones negative on admission. MICROBIOLOGY: Urine culture showed no growth. COVID swab was negative. RADIOLOGY: Gallbladder ultrasound showed gallbladder to be unremarkable. Common bile duct normal. Please see that report for details. CT of abdomen and pelvis showed some artifact motion, unable to fully rule out peripancreatic inflammation changes, hepatic steatosis. Please see that report for details. 12-lead EKG showed sinus tachycardia at 109. No ST or T-wave changes to indicate acute ischemia. Chest x-ray showed large heart without congestive failure. HOSPITAL COURSE: Ms. Whitley was admitted and treated for acute pancreatitis secondary to hypertriglycerides. She was started on an insulin drip initially and fluids and NPO. She did respond to treatment nicely over several days and was able to advance to a diet. She was tolerating a diet. She was started on metformin, lisinopril as well as a statin. Hemoglobin A1c on admission was 10. She was tolerating a diet and medications prior to discharge and was felt to be clinically stable enough to discharge to continue with outpatient management. Vital signs on discharge showed a temperature of 97.5, pulse 75, blood pressure 129/79, respirations 16, saturation 99% on room air. She was no longer having any abdominal pains, no nausea or vomiting and was ambulating. PLAN: Ms. Whitley was discharged on 12/09/[address] Dumont at [facility]. She was to resume a diabetic diet, low-fat, low- calorie diet. She was to increase activity as tolerated. She was stop smoking. She was to quit drinking. She was started on new medications includin. Metformin 500 mg twice daily, #60, no refills. 2. Lisinopril 10 mg daily, #30, no refills. 3. Simvastatin 40 mg at bedtime, #30, no refills. 4. She was given several days of Zofran 4 mg q.6h. as needed. She was to continue the rest of her medications as prior to hospitalization which included just Lexapro 20 mg daily. She is to followup with Dr. Dumont and return to the Emergency Room if she had any concerning symptoms. CONDITION ON DISCHARGE: Stable and improved. DISPOSITION: The patient is discharged home. #[id number] [facility]
--- NOTE | 2020-12-26 10:19 | CONS ---
DATE OF CONSULTATION: 12/06/20 REASON FOR CONSULTATION: Acute pancreatitis. HISTORY OF PRESENT ILLNESS: This is a 35-year-old woman who presented to the Emergency Room yesterday complaining of abdominal pain in the left upper quadrant that started acutely before arrival. She denied any nausea or vomiting. No history of similar symptoms. She had been diagnosed with pancreatitis and gallbladder ultrasound at this point was unremarkable. PAST MEDICAL HISTORY: 1. Congestive heart failure. 2. Hypertension. 3. Diabetes. 4. Chronic alcohol and methamphetamine use. PAST SURGICAL HISTORY: 1. section. 2. Tubal ligation. MEDICATIONS: None. ALLERGIES: NO KNOWN DRUG ALLERGIES. SOCIAL HISTORY: As above. REVIEW OF SYSTEMS: HEENT: No headache, visual changes, sore throat. RESPIRATORY: No cough or wheeze. CARDIOVASCULAR: No chest pain or palpitations. GASTROINTESTINAL: She had pain in the epigastrium going to the back. GENITOURINARY: No frequency, dysuria or hematuria. EXTREMITIES: No complaints. PHYSICAL EXAMINATION: VITAL SIGNS: Afebrile. Heart rate in the 80s. Blood pressure 150s/90s. Saturation 97% on room air. GENERAL: The patient is conscious, awake, alert and well-oriented, in only mild distress. HEENT: Normocephalic, atraumatic. Pupils equal and reactive to light. Sclerae anicteric. Oral mucosa is moist. CHEST: Clear bilaterally. HEART: Regular rate and rhythm. ABDOMEN: Mildly obese, soft. No evidence of diffuse peritonitis with some epigastric tenderness. No CVA tenderness. EXTREMITIES: No cyanosis, clubbing or edema. NEUROLOGIC: No focal defects. LABORATORY: This morning, white count 14 from 15. Hematocrit 39, platelet count 286. BMP showed sodium 131, potassium 3.5, creatinine less than 0.4, phosphorous 1.7. Transaminases normal, but her lipase was 561 and triglycerides 2800. RADIOLOGY: Gallbladder ultrasound was done and showed no evidence of stones or inflamed gallbladder. There was suggestion of pancreatitis seen on ultrasound. CT abdomen and pelvis was also done that showed evidence of pancreatitis. IMPRESSION: This is a 35-year-old woman with acute pancreatitis, history or drug abuse and alcohol abuse. No evidence of gallstones as a source of the pancreatitis, so possibly alcohol. Triglycerides are only mildly elevated. PLAN: I recommend to continue to observe and keep her NPO for now. Thank you for asking me to evaluate the patient. #[id number] [facility]
--- NOTE | 2020-12-26 10:35 | PN ---
DATE: 12/07/20 SUBJECTIVE: The patient is being observed for pancreatitis. She is still having some epigastric pain. She denied any nausea or vomiting overnight. No bowel movements. Overall, she said she was feeling better. OBJECTIVE: VITAL SIGNS: She has remained afebrile. Heart rate in the 90s. Blood pressure normal. Oxygen saturation 98% on room air. CONSTITUTIONAL: She is conscious, alert and oriented, in no distress. CHEST: Clear. HEART: Regular. ABDOMEN: Soft with mild epigastric tenderness to deep palpation. Overall, improved. EXTREMITIES: No complaints. LABORATORY: White blood cell count is now 10, which is improved. Hematocrit 38, platelet count 226. BMP shows improved sodium to 134, potassium 3.3. Phosphorous 2.3, magnesium 1.6, bilirubin 1.4 which is slightly higher and her repeat lipase is 204 which is improved. RADIOLOGY: No new studies have been done. ASSESSMENT: 1. Pancreatitis, otherwise improved. PLAN: We will wait until her pain is gone to begin feeding. Continue observation for now. Encourage ambulation. #[id number] [facility]
--- NOTE | 2020-12-26 10:43 | PN ---
DATE: 12/08/20 FOLLOWUP PANCREATITIS SUBJECTIVE: The patient is still feeling better today. She is not complaining of any nausea or vomiting. The pain is now intermittent and seems to be well controlled. She is hungry. OBJECTIVE: VITAL SIGNS: Temperature 97.5. Heart rate 80s. Blood pressure 140s/90s. Oxygen saturation 98% on room air. CONSTITUTIONAL: She is conscious, alert and in no distress. CHEST: Clear. HEART: Regular. ABDOMEN: Soft with only mild tenderness. No guarding, no rebound. EXTREMITIES: No edema. LABORATORY: White blood cell this morning 8, hematocrit 35, platelet count 219. Potassium 3.0, bilirubin 1.3 unfractionated. Lipase 89, triglycerides 445. RADIOLOGY: No new studies have been done. ASSESSMENT: 1. Pancreatitis, much improved. Labs are improved. The patient feels a lot better. PLAN: I would recommend starting on liquids today and likely discharge tomorrow. Obviously, she needs to get off alcohol and drugs. I discussed the risk of recurrence of pancreatitis and potential severity if it were to continue. #[id number] [facility]
== END 2020-12-09 14:14 | disposition home or self-care (01) | DRG 439 ==
LOC: ER 11:29 → INTOOBSV 15:16 → OBSVTOIN 15:16 → MS 15:16 → UNDOADMOB 15:16 → OBSVTOIN 15:17 → MS 15:17 → UNDODISIN 12-09 14:14
PROVIDERS: ADMIT Nurse Practitioner Family; ATTEND Nurse Practitioner Family
DX: K85.90 Acute pancreatitis without necrosis or infection, unspecified (principal); E87.2 Acidosis; E11.65 Type 2 diabetes mellitus with hyperglycemia; I10 Essential (primary) hypertension; E78.1 Pure hyperglyceridemia; Z20.822 Contact with and (suspected) exposure to COVID-19